=== PATIENT | male | born 1980 | race Caucasian/White ===

== ENCOUNTER → 2017-12-08 16:30 | Outpatient (CLI) | payer OTHER, SELFPAY ==
[2017-12-09 08:20] LABS: BUN 12 mg/dL (7-18); Creatinine, Serum 1.12 mg/dL (0.70-1.30); EST Glomerular Filtration Rate 78 mL/min (>60); Glucose 70 mg/dL (74-106)
[2017-12-09 08:21] LABS: ALB/GLOB Ratio 1.3 RATIO (0.9-2.4); AST(SGOT) 31 U/L (15-37); Alanine Aminotransfer ALT/SGPT 45 U/L (16-61); Albumin, Serum 4.2 g/dL (3.2-5.0); Alkaline Phosphatase 47 U/L (45-117); Anion Gap 7 (5-15); BUN/Creat Ratio 10.7 RATIO (10-20); Calcium,Total 8.9 mg/dL (8.5-10.1); Chloride 103 mmol/L (98-107); Cholesterol 174 mg/dL (200); Est Glom Filt Rate - Afr Amer 95 mL/min (>60); Globulin 3.2 g/dL (2.2-4.2); High Density Lipoprotein 37 mg/dL; Potassium 4.4 mmol/L (3.5-5.1); Protein, Total 7.4 g/dL (6.4-8.2); Sodium Level 139 mmol/L (136-145); Triglycerides 90 mg/dL; Very Low Density Lipoprotein 18 mg/dL (5-40)
[2017-12-09 08:48] LABS: Hemoglobin A1c 4.6 % (4.2-6.3)
== END ==
PROVIDERS: Family Provider Family Medicine; PCP Family Medicine; Visit Provider Registered Nurse
DX: I10 Essential (primary) hypertension (principal); K76.0 Fatty (change of) liver, not elsewhere classified; E78.2 Mixed hyperlipidemia; R73.01 Impaired fasting glucose
CPT/HCPCS: 80053; 80061; 83036

== ENCOUNTER → 2019-07-18 15:14 | Outpatient (CLI) | payer OTHER, SELFPAY ==
[2019-07-18 14:50] VITALS: BMI 48.6
[2019-07-18 17:05] LABS: ALB/GLOB Ratio 1.2 RATIO (0.9-2.4); AST(SGOT) 63 U/L (15-37); Alanine Aminotransfer ALT/SGPT 123 U/L (16-61); Albumin, Serum 3.8 g/dL (3.2-5.0); Alkaline Phosphatase 54 U/L (45-117); Anion Gap 7 (5-15); BUN 17 mg/dL (7-18); BUN/Creat Ratio 15.6 RATIO (10-20); Calcium,Total 8.9 mg/dL (8.5-10.1); Chloride 105 mmol/L (98-107); Cholesterol 195 mg/dL (200); Creatinine, Serum 1.09 mg/dL (0.70-1.30); EST Glomerular Filtration Rate 80 mL/min (>60); Est Glom Filt Rate - Afr Amer 97 mL/min (>60); Globulin 3.3 g/dL (2.2-4.2); Glucose 82 mg/dL (74-106); High Density Lipoprotein 40 mg/dL; Potassium 3.7 mmol/L (3.5-5.1); Protein, Total 7.1 g/dL (6.4-8.2); Sodium Level 139 mmol/L (136-145); Triglycerides 205 mg/dL; Very Low Density Lipoprotein 41 mg/dL (5-40)
[2019-07-18 17:07] LABS: Hemoglobin A1c 5.3 % (4.2-6.3)
== END ==
PROVIDERS: PCP Family Medicine; Referring Provider Family Medicine; Visit Provider Family Medicine
DX: I10 Essential (primary) hypertension (principal); E66.01 Morbid (severe) obesity due to excess calories
CPT/HCPCS: 36415; 80053; 80061; 83036

== ENCOUNTER → 2020-06-18 14:02 | Outpatient (CLI) | payer OTHER, SELFPAY ==
[2020-06-18 13:23] VITALS: BMI 49.5
[2020-06-18 14:04] LABS: Mucous, Urine 0 SEEN /hpf (<or=2+); Red Blood Cells-Urine 0 SEEN /hpf (0-5); Squamous Epithelial Cells - UA 0 SEEN /hpf (0-5); White Blood Cells 0 SEEN /hpf (0-5)
[2020-06-18 15:01] LABS: Absolute Neutrophil Count 2.4 X10^3/uL (2.0-7.7); Basophil# 0.03 X10^3/uL; Basophil% 0.6 % (0-1); Eosinophil# 0.11 X10^3/uL; Eosinophils% 2.3 % (0-5); Hematocrit 47.6 % (40-54); Hemoglobin 16.8 g/dL (13.0-16.5); Lymphocyte % 37.8 % (19-41); Mean Corp Hgb Conc 35.3 g/dL (32-36); Mean Corpuscular Hgb 31.5 pg (27.0-32.0); Mean Corpuscular Volume 89.3 fL (80-94); Mean Platelet Vol. 10.7 fl (6.2-12.0); Monocyte% 8.4 % (0-10); NRBC Flagged by Analyzer 0 % (0-5); Neutrophil # 2.41 X10^3/uL (2.7-7.7); Neutrophil % 50.7 % (47-70); Platelet Count 181 K/mm3 (150-450); RBC Distribution Width CV 12.2 % (11.6-14.6); RBC Distribution Width SD 39.8 fl (35.1-43.9); Red Blood Count 5.33 M/mm3 (4.6-6.2); White Blood Count 4.8 K/mm3 (4.4-11.0)
[2020-06-18 15:22] LABS: Color, Urine Yellow (Yellow); Glucose, Dipstick 1000 mg/dl (Normal); Ketone-Dipstick 15 mg/dl (Negative); Leukocyte Esterase-Dipstick Negative /ul (Negative); Nitrite-Dipstick Negative (Negative); Occult Blood-Urine 25 /ul (Negative); Protein-Dipstick 100 mg/dl (Negative); Specific Gravity, Urine 1.025 (1.002-1.030); Urine Bilirubin Dipstick Negative (Negative); Urine Clarity Clear (Clear); Urine Urobilinogen Normal (Normal)
[2020-06-18 15:24] LABS: ALB/GLOB Ratio 1.2 RATIO (0.9-2.4); AST(SGOT) 200 U/L (15-37); Alanine Aminotransfer ALT/SGPT 473 U/L (16-61); Albumin, Serum 3.8 g/dL (3.2-5.0); Alkaline Phosphatase 78 U/L (45-117); Anion Gap 6 (5-15); BUN 18 mg/dL (7-18); BUN/Creat Ratio 18.1 RATIO (10-20); Calcium,Total 9.3 mg/dL (8.5-10.1); Chloride 102 mmol/L (98-107); Cholesterol 243 mg/dL (200); EST Glomerular Filtration Rate 89 mL/min (>60); Est Glom Filt Rate - Afr Amer 107 mL/min (>60); Globulin 3.3 g/dL (2.2-4.2); Glucose 226 mg/dL (74-106); High Density Lipoprotein 35 mg/dL; PSA,Total - Annual Screen 0.58 ng/mL (0.00-4.00); Potassium 3.9 mmol/L (3.5-5.1); Protein, Total 7.1 g/dL (6.4-8.2); Sodium Level 136 mmol/L (136-145); Thyroid Stim Hormone (TSH) 2.08 uIU/mL (0.358-3.74); Triglycerides 392 mg/dL; Very Low Density Lipoprotein 78 mg/dL (5-40)
[2020-06-18 15:37] LABS: Bacteria 2+ /hpf (None Seen)
[2020-06-18 15:53] LABS: Microalbumin:Creatinine Ratio 1223.1 mg/g CRE (<30 mg/g CRE)
[2020-06-19 10:02] LABS: Hepatitis B Surface Antigen Non-Reactive (Nonreactive); Hepatitis C Antibody Non-Reactive (Nonreactive)
== END ==
PROVIDERS: PCP Family Medicine; Referring Provider Nurse Practitioner Family; Visit Provider Nurse Practitioner Family
DX: E11.65 Type 2 diabetes mellitus with hyperglycemia (principal); R35.0 Frequency of micturition; R79.89 Other specified abnormal findings of blood chemistry
CPT/HCPCS: 36415; 80053; 80061; 81001; 82043; 82570; 84153; 84443; 85025; 86803; 87086; 87340; G0103

== ENCOUNTER 2020-06-20 13:00 | Outpatient (RCR) | payer OTHER, SELFPAY ==
[2020-06-18 13:23] VITALS: BMI 49.5
== END 2020-06-20 23:59 | disposition home or self-care (01) ==
LOC: DC 13:00
PROVIDERS: PCP Family Medicine; Visit Provider Nurse Practitioner Family
DX: E11.65 Type 2 diabetes mellitus with hyperglycemia (principal)
CPT/HCPCS: G0108

== ENCOUNTER → 2020-06-29 09:15 | Outpatient (CLI) | payer OTHER, SELFPAY ==
[2020-06-18 13:23] VITALS: BMI 49.5
--- NOTE | 2020-06-29 09:16 | US_ITS ---
STUDY: ABDOMINAL ULTRASOUND - RIGHT UPPER QUADRANT REASON FOR VISIT: Male, 39 years old elevated lfts TECHNIQUE: Ultrasound evaluation of the right upper quadrant was performed with real-time and static hunt-scale imaging. TECHNICAL QUALITY: Adequate. COMPARISON: None. FINDINGS: Liver: The liver measures 19.0 cm. There is increased echogenicity consistent with fatty infiltration. The bile ducts are within normal limits. There is hepatic color flow. The direction of portal flow is hepatopetal. There is no demonstrated mass lesion. Gallbladder: Normal distended gallbladder. The gallbladder wall measures 2 mm. There is a negative sonographic Echeverria''s sign. There is no pericholecystic fluid. There are no gallstones. Common Bile Duct (C.B.D.): The common bile duct measures 4 mm. Pancreas: There is nonvisualization of the pancreas. t. Right Kidney: Normal size of the right kidney. The right kidney measures 11.7 cm. Normal renal cortex. The right cortex measures 2.1 cm. 1.2 cm cyst in the upper pole the right kidney. There is no right hydronephrosis. US/Liver IMPRESSION: Fatty infiltration of the liver. Electronically Signed: Tuan Dugan MD at 10:19 EST Tel , Service support ,
== END ==
PROVIDERS: PCP Family Medicine; Referring Provider Nurse Practitioner Family; Visit Provider Nurse Practitioner Family
DX: R79.89 Other specified abnormal findings of blood chemistry (principal)
CPT/HCPCS: 76705; 96361; 96365; 96366; 96375; 96376; 99218; G0378; G0379

== ENCOUNTER → 2020-07-17 09:31 | Outpatient (CLI) | payer OTHER, SELFPAY ==
[2020-06-18 13:23] VITALS: BMI 49.5
[2020-07-17 09:33] LABS: Bacteria 0 SEEN /hpf (None Seen); Mucous, Urine 0 SEEN /hpf (<or=2+); Red Blood Cells-Urine 0 SEEN /hpf (0-5); White Blood Cells 0 SEEN /hpf (0-5)
[2020-07-17 12:35] LABS: Color, Urine Yellow (Yellow); Glucose, Dipstick Normal (Normal); Ketone-Dipstick 5 mg/dl (Negative); Leukocyte Esterase-Dipstick Negative /ul (Negative); Nitrite-Dipstick Negative (Negative); Occult Blood-Urine Negative /ul (Negative); Protein-Dipstick 100 mg/dl (Negative); Specific Gravity, Urine 1.025 (1.002-1.030); Urine Bilirubin Dipstick Negative (Negative); Urine Clarity Sl. Cloudy (Clear); Urine Urobilinogen 1 mg/dl (Normal)
[2020-07-17 12:41] LABS: Squamous Epithelial Cells - UA 0-5 SEEN /hpf (0-5)
== END ==
PROVIDERS: PCP Family Medicine; Referring Provider Nurse Practitioner Family; Visit Provider Nurse Practitioner Family
DX: R31.9 Hematuria, unspecified (principal)
CPT/HCPCS: 81001

== ENCOUNTER → 2020-08-07 16:06 | Outpatient (CLI) | payer OTHER, SELFPAY ==
[2020-08-06 16:46] VITALS: BMI 49.4
--- NOTE | 2020-08-07 16:10 | RAD_ITS ---
STUDY: X-RAY - RIGHT KNEE REASON FOR EXAM: Male, 39 years old. right knee pain TECHNIQUE: 4 view(s) of the knee. COMPARISON: None. FINDINGS: Normal visualized distal femur. Normal visualized proximal tibia and fibula. Normal proximal tibiofibular articulation. There is no demonstrated fracture. Normal medial femorotibial compartment. Normal lateral femorotibial compartment. Normal patellofemoral articulation. Minimal joint effusion. Soft tissue swelling along the anterior knee. RAD/Knee 4 or More Views IMPRESSION: Mild soft tissue swelling along with minimal joint effusion. No acute fracture or subluxation. Electronically Signed: Magaly Perkins MD at 22:03 EDT , Service support ,
== END ==
PROVIDERS: PCP Family Medicine; Referring Provider Nurse Practitioner Family; Visit Provider Nurse Practitioner Family
DX: M25.561 Pain in right knee (principal)
CPT/HCPCS: 73564

== ENCOUNTER → 2020-11-21 15:25 | Outpatient (CLI) | payer OTHER, SELFPAY ==
[2020-10-14 14:01] VITALS: BMI 49.1
[2020-11-19 17:02] VITALS: BMI 46.6
--- NOTE | 2020-11-21 15:26 | MRI_ITS ---
STUDY: MRI RIGHT KNEE REASON FOR EXAM: Male, 39 years old. Medial RIGHT knee pain TECHNIQUE: Standardized fat and water weighted pulse sequences were obtained in all 3 orthogonal planes. COMPARISON: None. FINDINGS: A small to moderate-sized joint effusion is present. No marrow edema or osteochondral defect or occult fracture is seen. A small radial tear is present at the free edge of the inner one third aspect of the posterior horn of medial meniscus. Intrasubstance signal abnormality and irregularity is also seen in the root insertion. Normal anterior horn. There is diffuse thinning of the body of the medial meniscus. There is diffuse, greater than 50% thickness articular cartilage loss of the medial femorotibial compartment. Normal medial femoral condyle and tibial plateau. Normal medial collateral ligamentous complex (MCL). Normal distal semimembranosus, gracilis and semitendinosus tendons. Normal lateral meniscus. Normal hyaline cartilage of the lateral femorotibial compartment. Normal lateral femoral condyle and tibial plateau. Normal proximal tibiofibular articulation. Normal lateral collateral (fibular) ligament. Normal popliteus tendon. Normal biceps femoris tendon. Normal anterior cruciate ligament (ACL). Normal posterior cruciate ligament (PCL). Normal congruent patellofemoral articulation. Normal hyaline cartilage of the patellofemoral compartment. Normal lateral patellar retinaculum. Mild partial tearing of the inferior aspect of the medial patellar retinacula noted. Normal quadriceps tendon. Normal patellar tendon. Normal Hoffa''s fat pad. The soft tissues are unremarkable. The otherwise visualized osseous structures are unremarkable. MRI/Lower Ext Joint Only (Routine) IMPRESSION: 1. Small radial tear and intrasubstance signal abnormality in the inner one third aspect of the posterior horn of medial meniscus and root insertion respectively. 2. Diffuse thinning of the body of the medial meniscus 3. Small to moderate size joint effusion 4. Partial tearing of the medial patellar retinaculum Electronically Signed: Quintin Michel MD at 21:17 EDT , Service support ,
== END ==
PROVIDERS: PCP Family Medicine; Referring Provider Orthopaedic Surgery; Visit Provider Orthopaedic Surgery
DX: M17.11 Unilateral primary osteoarthritis, right knee (principal); E66.01 Morbid (severe) obesity due to excess calories
CPT/HCPCS: 73721

== ENCOUNTER → 2020-12-16 16:04 | Outpatient (CLI) | payer OTHER, SELFPAY ==
[2020-12-16 15:40] VITALS: BMI 46.6
[2020-12-16 17:20] LABS: ALB/GLOB Ratio 1.3 RATIO (0.9-2.4); AST(SGOT) 57 U/L (15-37); Alanine Aminotransfer ALT/SGPT 108 U/L (16-61); Alkaline Phosphatase 50 U/L (45-117); Anion Gap 5 (5-15); BUN 14 mg/dL (7-18); Calcium,Total 8.5 mg/dL (8.5-10.1); Chloride 105 mmol/L (98-107); Cholesterol 192 mg/dL (200); Creatinine, Serum 1.08 mg/dL (0.70-1.30); EST Glomerular Filtration Rate 81 mL/min (>60); Est Glom Filt Rate - Afr Amer 97 mL/min (>60); Glucose 117 mg/dL (74-106); High Density Lipoprotein 35 mg/dL; Potassium 4.1 mmol/L (3.5-5.1); Sodium Level 141 mmol/L (136-145); Triglycerides 615 mg/dL
[2020-12-16 17:29] LABS: Microalbumin:Creatinine Ratio 477.7 mg/g CRE (<30 mg/g CRE)
== END ==
PROVIDERS: PCP Family Medicine; Referring Provider Nurse Practitioner Family; Visit Provider Nurse Practitioner Family
DX: E11.9 Type 2 diabetes mellitus without complications (principal); E66.01 Morbid (severe) obesity due to excess calories; K76.0 Fatty (change of) liver, not elsewhere classified
CPT/HCPCS: 36415; 80053; 80061; 82043; 82570

== ENCOUNTER → 2021-01-24 11:29 | Outpatient (CLI) | payer OTHER, SELFPAY ==
[2021-01-24 11:25] LABS: Probe Check PASS; Specimen Processing Control PASS
== END ==
PROVIDERS: PCP Family Medicine; Visit Provider Physician Assistant
DX: Z11.52 Encounter for screening for COVID-19 (principal)
CPT/HCPCS: 87635; U0005; U0003

== ENCOUNTER 2021-01-27 18:39 | Outpatient (CLI) | payer OTHER, SELFPAY ==
[2021-01-27 18:44] VITALS: BP 174/83; PULSE 53; RESP 16; TEMP 36.6; O2SAT 97; BMI 46.8
[2021-01-27] MEDS: 0.9% Saline Lock 10 ML Syringe IV (18:50)
[2021-01-27 19:16] VITALS: BP 151/77; PULSE 53; RESP 16; TEMP 36.5; O2SAT 98
[2021-01-27 20:16] VITALS: BP 175/83; PULSE 52; RESP 16; TEMP 36.6; O2SAT 98
== END 2021-01-27 20:16 | disposition home or self-care (01) ==
LOC: ICUOUT 18:40 → MS3 18:41
PROVIDERS: PCP Family Medicine; Referring Provider Nurse Practitioner Adult Health; Visit Provider Nurse Practitioner Adult Health
DX: Z23 Encounter for immunization (principal); U07.1 COVID-19
CPT/HCPCS: J7050; M0243; A4216; Q0244

== ENCOUNTER 2021-05-30 08:27 | Outpatient (CLI) | payer OTHER, SELFPAY ==
[2021-05-30 12:22] LABS: Absolute Lymphocyte Count 1.71 X10^3/uL (0.83-4.51); Absolute Neutrophil Count 3.6 X10^3/uL (2.0-7.7); Basophil# 0.03 X10^3/uL; Basophil% 0.5 % (0-1); Eosinophil# 0.13 X10^3/uL; Eosinophils% 2.1 % (0-5); Hematocrit 45.2 % (40-54); Hemoglobin 16.1 g/dL (13.0-16.5); Lymphocyte # 1.71 X10^3/ul (0.83-4.51); Lymphocyte % 27.8 % (19-41); Mean Corp Hgb Conc 35.6 g/dL (32-36); Mean Corpuscular Hgb 32.1 pg (27.0-32.0); Mean Platelet Vol. 10.5 fl (6.2-12.0); Monocyte# 0.68 X10^3/uL; Monocyte% 11.1 % (0-10); NRBC Flagged by Analyzer 0 % (0-5); Neutrophil # 3.58 X10^3/uL (2.7-7.7); Neutrophil % 58.2 % (47-70); Platelet Count 208 K/mm3 (150-450); RBC Distribution Width CV 12.7 % (11.6-14.6); RBC Distribution Width SD 41.4 fl (35.1-43.9); Red Blood Count 5.02 M/mm3 (4.6-6.2); White Blood Count 6.2 K/mm3 (4.4-11.0)
[2021-05-30 13:04] LABS: Vitamin D,25 Hydroxy 26.3 ng/mL
[2021-05-30 13:05] LABS: ALB/GLOB Ratio 1.1 RATIO (0.9-2.4); AST(SGOT) 75 U/L (15-37); Alanine Aminotransfer ALT/SGPT 147 U/L (16-61); Albumin, Serum 3.8 g/dL (3.2-5.0); Alkaline Phosphatase 51 U/L (45-117); Anion Gap 4 (5-15); BUN 14 mg/dL (7-18); Calcium,Total 8.8 mg/dL (8.5-10.1); Chloride 107 mmol/L (98-107); Cholesterol 108 mg/dL (200); EST Glomerular Filtration Rate 88 mL/min (>60); Est Glom Filt Rate - Afr Amer 106 mL/min (>60); Globulin 3.4 g/dL (2.2-4.2); Glucose 83 mg/dL (74-106); High Density Lipoprotein 37 mg/dL; Potassium 3.9 mmol/L (3.5-5.1); Protein, Total 7.2 g/dL (6.4-8.2); Sodium Level 138 mmol/L (136-145); Thyroid Stim Hormone (TSH) 2.62 uIU/mL (0.358-3.74); Triglycerides 124 mg/dL; Very Low Density Lipoprotein 25 mg/dL (5-40)
== END 2021-05-30 23:59 | disposition short-term general hospital (02) ==
PROVIDERS: PCP Family Medicine; Referring Provider Nurse Practitioner Family; Visit Provider Nurse Practitioner Family
DX: E11.9 Type 2 diabetes mellitus without complications (principal); E66.01 Morbid (severe) obesity due to excess calories; K76.0 Fatty (change of) liver, not elsewhere classified; E56.9 Vitamin deficiency, unspecified; U07.1 COVID-19
CPT/HCPCS: 36415; 80053; 80061; 82043; 82306; 82570; 84443; 85025; 86769

== ENCOUNTER 2021-06-10 09:43 | Day surgery (SDC) | payer OTHER, SELFPAY ==
[2021-06-10] VITALS (11 sets, daily range): BP systolic 120–165; BP diastolic 59–116; PULSE 43–61; RESP 12–18; TEMP 36.1–36.6; O2SAT 91–100; BMI 48.9
[2021-06-10 10:16] LABS: Bedside Glucose 95 mg/dL (70-110)
[2021-06-10] MEDS: Lactated Ringers 1,000 ML 15 ML IV ×2 (10:30→13:22)
[2021-06-10] MEDS: Epinephrine (1 mg/ml) 1 MG/ML VIAL (11:20)
--- NOTE | 2021-06-10 11:39 | PCM.HP.BLA ---
History and Physical Date of Admission: 06/10/21 Date of Service: 05/28/21 MR#:[id number]:[id number]: MICHA FLORES WRep #:[id number]:[id number] Provider:Dr. Noah Kohler, DOAge/Sex: 40/M [facility] [place] Intake Intake Visit Reasons: RIGHT KNEE Is patient in pain?: Yes Allergies erythromycin base Allergy (Verified 05/28/21 15:11) Unknown Medications blood sugar diagnostic #50 ea 06/18/20 [Rx Confirmed 05/28/21] blood-glucose meter #1 ea 06/18/20 [Rx Confirmed 05/28/21] lancets 28 gauge #50 ea 06/18/20 [Rx Confirmed 05/28/21] diltiazem HCl 240 mg capsule,24 hr,extended release 240 mg PO DAILY #90 cap 11/19/20 [Rx Confirmed 05/28/21] lisinopril 40 mg tablet 40 mg PO DAILY #90 tab 11/19/20 [Rx Confirmed 05/28/21] metoprolol succinate 50 mg capsule sprinkle, ext. release 24 hr 50 mg PO DAILY #90 ea 11/19/20 [Rx Confirmed 05/28/21] fenofibrate micronized 43 mg capsule 43 mg PO QHS #90 cap 12/17/20 [Rx Confirmed 05/28/21] rosuvastatin 20 mg tablet 20 mg PO DAILY #90 tab 12/17/20 [Rx Confirmed 05/28/21] dextromethorphan-guaifenesin ER 60 mg-1,200 mg tab,extend release,12hr 1 tab PO BID PRN #20 tab 01/27/21 [Rx Confirmed 05/28/21] dulaglutide 1.5 mg/0.5 mL subcutaneous pen injector 1.5 mg SC TU #2 ml 05/06/21 [Rx Confirmed 05/28/21] PFSH Medical History (Updated 05/27/21 @ 17:14 by Carlos Colunga RISK SPECIALIST, RISK SPECIALIST-C) Colon polyps Diabetes Encounter for screening for COVID-19 Fatty liver Frequent headaches GERD (gastroesophageal reflux disease) HTN (hypertension) Hyperlipidemia Seasonal allergies Surgical History H/O eye surgery H/O hernia repair History of tonsillectomy Family History Other Anxiety Arthritis Diabetes Heart disease Hypertension Thyroid disorder Social History Smoking Status: Never smoker alcohol intake: current alcohol intake frequency: holidays/special occasions only substance use type: does not use what type of physical activity do you participate in: none HPI RIGHT KNEE Details: Parts of this documentation were recorded by a scribe, this documentation accurately reflects the service provided and the decisions made by me, Dr. Noah Kohler, DO 05/28/21 0815. MICHA FLORES is a 40 year old M here today for continued right knee pain. Patient notes that the series of 3 Euflexxa injections in December 2020 which helped with his pain for about 2 months. He had a steroid injection in 10/2020 which was helpful for about a week. Patient complains of pain over his medial knee and across his anterior knee. He has some popping which is painful. Patient has knee instability. He complains of pain with ambulating stairs. 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 Patient had an MRI in October. Patient denies any pain medications. He states that his weight is staying about the same. Ortho Exam General General: Yes no acute distress Neurologic: Yes alert Psychologic: Yes reasonable and appropriate Right Knee Skin/Wound: Yes CDI, No erythema and No ecchymosis Knee ROM: Yes ROM-Extension -20 to 0 and Yes ROM-Flexion 0-140 (90) Examination: Yes Med jt line tenderness and Yes Addison's Test Supplemental Info 11/21/2020 MRI right knee: Read as small radial tear free edge inner one third aspect posterior horn medial meniscus however I am having a hard time visualizing this. Also read as greater than 50% articular cartilage loss of the medial compartment joint effusion read as partial tearing noted of the inferior aspect of the medial patellar retinaculum there is mild patellofemoral arthrosis with lateral patellar tracking Coding Level of Care Code Off vis,est,level 3 Diagnoses Arthritis of right knee M17.11 Acute medial meniscus tear of left knee S83.242A Encounter type: initial encounter Assessment and Plan Assessment and Plan (1) Arthritis of right knee: Status: Acute (2) Acute medial meniscus tear of left knee: Status: Acute Qualifiers: Encounter type: initial encounter Qualified Code(s): S83.242A - Other tear of medial meniscus, current injury, left knee, initial encounter Plan - Dr. Noah Kohler DO: Spoke with the patient about the anatomy of the knee and etiology of his pain. Spoke with him about the small meniscus tear within his knee and he may have an arthroscopy although it might not help him due to the small nature of the tear and the presence of knee arthritis. Explained the benefits of weight loss and he may be referred to the [facility]. He may do physical therapy and anti-inflammatories. Due to the patient failing conservative treatment, he wished to proceed with an arthroscopy as he does have somepainful mechanical symptoms. we discussed the importance of weight loss and offered referral to the [facility]. Spoke with the patient about the procedure, recovery. Explained a medial meniscectomy vs repair. Patient will be non-weightbearing for 6 weeks post op if he has a meniscus repair. Reviewed the pre-operative plans with the patient. Risks and benefits of the procedure were fully explained, including but not limited to infection, neurovascular injury, continued pain, arthritis, stiffness, need for further surgery, re-injury, DVT, PE, general risks of anesthesia, and loss of limb or life. The patient understands all the risks and does wish to proceed with written consent. Follow up for 2 week post op or sooner if pain, swelling, numbness or associated symptoms, or concerns develop. All questions answered. Patient in agreement of plan. 05/28/21 1535<Electronically signed by Noah Kohler DO>Date Noah Kohler DO Cosigner Signature:Date I have re-examined the patient. There are no clinical changes since date of exam
[2021-06-10] MEDS: Lidocaine 1%/Epi 1:200 (30ml) 30 ML AMPUL (11:50)
[2021-06-10] MEDS: Bupivacaine 0.5% PF 10 ML VIAL (12:15)
[2021-06-10] MEDS: MethylPREDNISolone Acetate 40 MG/ML Vial IM (12:15)
--- NOTE | 2021-06-10 12:24 | OP.PCM_ITS ---
Report of Operation Date of Procedure: 06/10/21 Description of Surgical Findings:: Preop diagnosis: Right knee medial meniscus tear DJD Postoperative diagnosis: Synovitis, plica, complex tear body and horn medial meniscus grade 3 cartilage wear medial femoral condyle Procedure: Right knee arthroscopic partial medial meniscectomy excision of plica synovectomy and chondroplasty medial femoral condyle Anesthesia: General Estimated blood loss: [5] mL Tourniquet time: 25 minutes 300 mmHg Complications: none Indication for procedure: 40-year-old male has had ongoing mechanical knee pain who is failed conservative treatment did have MRI evidence of DJD and medial meniscus tear the patient did wish to proceed with an elective arthroscopic surgery to attempt to alleviate the symptoms. Risk benefits and alternatives of the procedure were reviewed including risk of bleeding infection nerve artery tissue damage need for further surgery continued pain and expected postoperative course. Procedure: The patient was met in the preoperative holding area. The operative extremity was identified by both patient and physician and family and marked. Patient was brought back to the operating room on a wheeled cart and transferred to the operating table in the supine position. Anesthesia was started. A we ll-padded tourniquet was placed on the operative extremity. A lower extremity leg tilley was secured to the operative extremity. The contralateral extremity was well-padded and the end of the bed was flexed to 90 degrees. The patient was prepped and draped in the usual sterile fashion. A timeout was called to ensure the proper patient, procedure, and extremity were being contemplated. 0.5% Marcaine with epinephrine was injected into the planned incisional areas under the skin only. An Esmarch was used to exsanguinate the extremity and the tourniquet was inflated. An 11 blade scalpel was used to make a stab incision in the anterior lateral portal. The arthroscope was inserted into the intercondylar notch and inflow and outflow tubes were attached. Arthroscopic visualization began. There was significant hypertrophic tissue within the notch and gutters reminiscent of prior arthroscopic surgeries however the patient denied any. Shaver had to be used to perform a partial synovectomy to allow for visualization there was not significant synovitis just thickened what appeared to be scar tissue, there was medial and lateral plicas which had to be removed to allow visualization the medial compartment was entered. An 18-gauge spinal needle was used to establish the placement for anterior medial portal. An 11 blade scalpel was used to make a stab incision. Blunt probe was inserted followed by a meniscal probe. There was noted to be a radial tear of the body of the medial meniscus as well as some undersurface horizontal tearing of the posterior horn with use of arthroscopic biting instruments shaver and ArthroCare partial medial meniscectomy was performed in addition there is diffuse grade 3 cup chondral wear of the medial femoral condyle and there was some loose carti dheeraj flaps which were debrided with a shaver the ACL was [found to be intact]. The lateral compartment was entered lateral compartment was free of meniscal pathology with there was some cartilage softening and fissuring of the tibial plateau The arthroscope was switched to the medial portal to complete the procedure. The medial and lateral gutters were inspected and [were free of loose bodies]. The patellofemoral joint was inspected grade 3 cartilage wear, in addition there is noted to be some osteophytes at the superior edge of the femoral articulation with the patella as well as in the notch and on the medial femoral condyle medial border. [There was good patellar tracking.] The knee was thoroughly irrigated and drained. An intra-articular injection with 5 cc 0.5% Marcaine plain [and 40 mg of Depo-Medrol] was injected intra-articularly. The arthroscope was removed the portals were closed with 3-0 nylon arthroscopic stitches. Followed by Xeroform 4 x 4's ABDs web roll and an Ketan wrap. The tourniquet was let down and the drapes were removed. All counts were correct. The patient was brought back to the PACU in stable condition. Surgeon: Noah Kohler
--- NOTE | 2021-06-10 12:29 | PCM.DC ---
Discharge Instructions Activity Keep extremity elevated above heart level: Operative Extremity Dressing / Incision Call your doctor if you observe: Shortness of breath and Chest pain Additional Dressing/Incision Instructions:: Ice and elevate next 72 hours .keep dressing on clean and dry for 48 hours then may remove begin showering daily but do not submerge in tub or pool. After shower may apply Band-Aids . Encourage knee range of motion weightbearing as tolerated, use crutches until confident in knee then may discontinue. No strenuous activity. When not ambulating keep iced and elevated next 72 hours. Do not mix pain medication with recreational drugs or alcohol only take as prescribed can be addictive and abusive, call with any questions or concerns. Follow Up Care Please Follow Up With: Noah Kohler DO When: 2 weeks Test Results: Test results from this visit will be discussed in further detail at your follow-up appointment, if applicable. Discharge Plan Admission Attending Provider: Noah Kohler Primary Care Provider: Roger Gibson Discharge Orders/Prescriptions Prescriptions: New oxycodone 5 mg tablet 5 - 10 mg PO Q4H PRN (Reason: pain) 5 Days Qty: 25 RF: 0 No Action (DME) lancets [FreeStyle Lancets] 28 gauge misc See Rx Instructions .ROUTE .MEDSUPPLY Qty: 50 RF: 11 (DME) blood-glucose meter [FreeStyle System Kit] Kit See Rx Instructions .ROUTE .MEDSUPPLY Qty: 1 RF: 0 (DME) FreeStyle Test Strip See Rx Instructions .ROUTE .MEDSUPPLY Qty: 50 RF: 11 diltiazem HCl 240 mg capsule,extended release 24 hr 240 mg PO DAILY Qty: 90 RF: 3 lisinopril 40 mg tablet 40 mg PO DAILY Qty: 90 RF: 3 metoprolol succinate 50 mg capsule,sprinkle,ER 24hr 50 mg PO DAILY Qty: 90 RF: 3 rosuvastatin 20 mg tablet 20 mg PO DAILY Qty: 90 RF: 1 fenofibrate micronized 43 mg capsule 43 mg PO QHS Qty: 90 RF: 1 Trulicity 1.5 mg/0.5 mL pen injector 1.5 mg SC TU Qty: 2 RF: 3 Referrals / Follow Up: Roger Gibson DO [Primary Care Provider] - Disposition Disposition (needs filled in before D/C Order can be placed): Home, Self Care
[2021-06-10] MEDS: oxyCODONE 5 MG Tablet PO (14:40)
== END 2021-06-10 23:59 | disposition home or self-care (01) ==
LOC: SDC 09:44 → AC 09:44
PROVIDERS: PCP Family Medicine; Referring Provider Orthopaedic Surgery; Visit Provider Orthopaedic Surgery
PROC: 0SBC4ZZ Excision of Right Knee Joint, Percutaneous Endoscopic Approach (ICD-10-PCS; CPT 29870; principal; 2021-06-10 11:00)
DX: S83.239A Complex tear of medial meniscus, current injury, unspecified knee, initial encounter (principal); E11.9 Type 2 diabetes mellitus without complications; Z79.4 Long term (current) use of insulin; M17.11 Unilateral primary osteoarthritis, right knee; I10 Essential (primary) hypertension; M65.9 Synovitis and tenosynovitis, unspecified; E78.5 Hyperlipidemia, unspecified; M25.369 Other instability, unspecified knee; X58.XXXA Exposure to other specified factors, initial encounter; Y93.9 Activity, unspecified; Y99.9 Unspecified external cause status; Y92.9 Unspecified place or not applicable; Z79.899 Other long term (current) drug therapy; K21.9 Gastro-esophageal reflux disease without esophagitis; Z86.16 Personal history of COVID-19
CPT/HCPCS: 29881; 01400; 82962; 87426; J7120; J2405

== ENCOUNTER → 2021-09-01 | Outpatient (CLI) | payer OTHER, SELFPAY ==
[2021-09-01 17:21] LABS: Protein, Urine (Random) 153.6 mg/dL (<11.9); Protein:Creat Ratio 698 mg/g CRE (0-200)
[2021-09-01 17:23] LABS: Anion Gap 5 (5-15); BUN 20 mg/dL (7-18); BUN/Creat Ratio 13.1 RATIO (10-20); Calcium,Total 9.6 mg/dL (8.5-10.1); Chloride 105 mmol/L (98-107); Creatinine, Serum 1.53 mg/dL (0.70-1.30); EST Glomerular Filtration Rate 54 mL/min (>60); Est Glom Filt Rate - Afr Amer 65 mL/min (>60); Glucose 90 mg/dL (74-106); Potassium 4.3 mmol/L (3.5-5.1); Sodium Level 139 mmol/L (136-145)
[2021-09-03 16:10] LABS: PROEL- A/G Ratio 1.3 (0.7-1.7); PROEL- Alpha-1 Globulin 0.2 g/dL (0.0-0.4); PROEL- Alpha-2 Globulin 0.9 g/dL (0.4-1.0); PROEL- Beta Globulin 1.1 g/dL (0.7-1.3); PROEL- Gamma Globulin 0.8 g/dL (0.4-1.8)
== END | disposition home or self-care (01) ==
PROVIDERS: PCP Family Medicine; Referring Provider Internal Medicine Nephrology; Visit Provider Internal Medicine Nephrology
DX: N18.2 Chronic kidney disease, stage 2 (mild) (principal); R80.9 Proteinuria, unspecified
CPT/HCPCS: 36415; 80048; 82570; 84156; 84165

== ENCOUNTER 2021-12-12 05:22 | Day surgery (SDC) | payer OTHER, SELFPAY ==
[2021-12-12] VITALS (7 sets, daily range): BP systolic 126–172; BP diastolic 67–84; PULSE 48–75; RESP 16; TEMP 36.6–37.5; O2SAT 93–100; BMI 47.7
--- NOTE | 2021-12-12 | COLBX_PTH ---
PATIENT: MICHA FLORES LOC: EN U#:[id number] AGE/SX: 40/M ROOM: RE12/12/[address]: Dr. Cristiano Dobbins DO : 1980 BED: DIS: 12/12/2021 SPEC #: [id number] RECD: 12/12/21 13:46 STATUS: WAYNE RERolanda #: [id number] PHIL: 12/12/21 00:[address]: Cristiano Dobbins DEPT: SURGICAL PATHOLOGY RECD BY: Yosef Medina ENTERED: 12/12/21 13:47 SP TYPE: COLON BX [place] DR: Dr. Roger Gibson DO Tissues: A - Cecum, NOS B - SPLENIC FLEXURE C - Sigmoid colon biopsy D - Rectum, NOS Procedures: Surgery Specimen Level IV HEADER OPERATION: Colonoscopy (MAC) PRE-OP DIAGNOSIS: Non-alcoholic fatty liver disease, colon polyps TISSUE SUBMITTED: A ? Cecal polyp biopsy, B ? Splenic flexure biopsy, C ? Sigmoid polyp, D ? Rectum polyp biopsy MICROSCOPIC DIAGNOSIS A ? Cecal polyp, biopsy: A fragment of colonic mucosa with focal hyperplastic changes. B ? Splenic flexure, biopsy: Fragments of tubular adenoma. C ? Sigmoid polyp, biopsy: Tubular adenoma. D ? Rectum polyp biopsy: Fragments of tubular adenoma. MARÍA 12/15/21 MICROSCOPIC DESCRIPTION Slides are reviewed. GROSS DESCRIPTION A - Received in fixative is one container labeled with the patient's name and designated cecal polyp biopsy. The specimen consists of one irregular fragment of light henry soft tissue that measures 0.4 x 0.3 x 0.1 cm. The specimen is totally submitted in one cassette. B - Received in fixative is one container labeled with the patient's name and designated splenic flexure biopsy. The specimen consists of multiple irregular fragments of light henry soft tissue that in aggregate measure 0.8 x 0.3 x 0.1 cm. The specimen is totally submitted in one cassette. C - Received in fixative is one container labeled with the patient's name and designated sigmoid polyp. The specimen consists of a piece of henry-pink polyp measuring 0.3 x 0.3 x 0.2 cm. Multiple fragments of fecal material are also noted. The specimen is totally submitted in one cassette. D - Received in fixative is one container labeled with the patient's name and designated rectum polyp. The specimen consists of two irregular fragments of light henry soft tissue that in aggregate measure 0.6 x 0.3 x 0.1 cm. The specimen is totally submitted in one cassette: / MARÍA:anayeli 12/12/21 TC:1 CPT: 99634 x4
--- NOTE | 2021-12-12 06:24 | HP.PCM_ITS ---
History and Physical Date of Admission: 12/12/21 40 M who presents to the office today for hx of colon polyp. States he is overdue for Q5yr colonoscopy for hx of colon polyp. No FH colon cancer. He says he has no GI complaints. Has daily BM. Does have to strain with BM, can be painful. No bleeding. No diarrhea. No abdominal pain. He denies heartburn, denies using medication for heartburn. No nausea or vomiting. No difficulty swallowing. He had an US in 2020 that revealed fatty liver. He has diabetes, obesity. Comorbidities include DM2, obesity, LANE, HTN, NAFLD, headaches, hyperlipidemia, seasonal allergies ROS Const Constitutional: No fatigue ENT ENT: No difficulty swallowing Cardio Cardiology: Positive for slow heart rate Gastro GI: Positive for bloating and excessive flatus; No abdominal pain, belching, change in bowel habits, change in stool character, coffee ground emesis, constipation, cramping, diarrhea, heartburn, difficulty swallowing, feeling full early, incontinent of stools, Vomiting blood/hemate mesis, Blood in stool, loose stools, Black,tarry stools, nausea/dyspepsia, pain with swallowing, vomiting or other Musc Musculoskeletal: Positive for back pain; No joint pain Skin Skin: No yellowing of the eye or itchy eyes Psych Psychiatric: No anxiety and No depression Endo Endocrine: No fatigue Aller/Imm Allergy/Immunologic: No itchy eyes Pako/Lymp Hematologic/Lymphatic: No easy bleeding or easy bruising Exam Const General: cooperative and comfortable Nutritional Appearance: obese Quality Reporting Tobacco Screening ([facility]) Smoking Status: Never smoker Assessment and Plan Assessment and Plan (1) Non-alcoholic fatty liver disease: ?Status:?Chronic (2) Colon polyps: ?Status:?Acute ? ? ? Orders: Orders Abdomen Complete Today K76.0 - Fatty (change of) liver, not elsewhere classified ? Elastography Parenchyma/Organ Today K76.0 - Fatty (change of) liver, not elsewhere classified ? HIV - [facility] Today K76.0 - Fatty (change of) liver, not elsewhere classified ? Comprehensive Metabolic Profil Today K76.0 - Fatty (change of) liver, not elsewhere classified ? CRP Today K76.0 - Fatty (change of) liver, not elsewhere classified ? Ferritin Today K76.0 - Fatty (change of) liver, not elsewhere classified ? LDH Today K76.0 - Fatty (change of) liver, not elsewhere classified ? Hemoglobin A1c Today K76.0 - Fatty (change of) liver, not elsewhere classified ? Prothrombin Time w/INR Today K76.0 - Fatty (change of) liver, not elsewhere classified ? CBC W/Diff, Automated Today K76.0 - Fatty (change of) liver, not elsewhere classified ? Erythrocyte Sed Rate Today K76.0 - Fatty (change of) liver, not elsewhere classified ? Anti-Mitochondrial AB Today K76.0 - Fatty (change of) liver, not elsewhere classified ? FREDERICK Comprehensive Panel Today K76.0 - Fatty (change of) liver, not elsewhere classified ? Hepatitis Panel Acute Today K76.0 - Fatty (change of) liver, not elsewhere classified ? Angiotensin Convert Enzyme Today K76.0 - Fatty (change of) liver, not elsewhere classified ? AFP, Tumor Marker Today K76.0 - Fatty (change of) liver, not elsewhere classified ? ANCA Today K76.0 - Fatty (change of) liver, not elsewhere classified ? Anti-Smooth Muscle ABS Today K76.0 - Fatty (change of) liver, not elsewhere classified ? Ceruloplasmin Today K76.0 - Fatty (change of) liver, not elsewhere classified ? Copper, Serum or Plasma Today K76.0 - Fatty (change of) liver, not elsewhere classified ? Haptoglobin Today K76.0 - Fatty (change of) liver, not elsewhere classified ? Ammonia Today K76.0 - Fatty (change of) liver, not elsewhere classified ? Plan He will be scheduled for colonoscopy. He denied any heartburn or use of any meds for heartburn so I didn't schedule him for EGD. f/u 2 wks after to discuss results. Discussed NAFLD diagnosis, biochemical w/u, eval with liver elastography I have re-examined the patient. There are no clinical changes since date of exam.
[2021-12-12 07:10] LABS: Bedside Glucose 112 mg/dL (74-106)
--- NOTE | 2021-12-12 07:13 | OP.COLON_ITS ---
Patient Name: Bishop Hernández Procedure Date: 12/12/2021 6:26 AM Date of : 1980 Age: 41 Procedure: Colonoscopy Indications: Screening for colorectal malignant neoplasm Providers: Cristiano Dobbins DO Medicines: Monitored Anesthesia Care Patient Profile: This is a 41 year old male. Refer to note in patient chart for documentation of history and physical. Last Colonoscopy: 5 years ago. Complications: No immediate complications. Procedure: Pre-Anesthesia Assessment: - Prior to the procedure, a History and Physical was performed, and patient medications and allergies were reviewed. The patient is competent. The risks and benefits of the procedure and the sedation options and risks were discussed with the patient. All questions were answered and informed consent was obtained. Patient identification and proposed procedure were verified by the physician in the pre-procedure area. Mental Status Examination: alert and oriented. Airway Examination: normal oropharyngeal airway and neck mobility. Respiratory Examination: clear to auscultation. CV Examination: normal. Prophylactic Antibiotics: The patient does not require prophylactic antibiotics. Prior Anticoagulants: The patient has taken no previous anticoagulant or antiplatelet agents. ASA Grade Assessment: II - A patient with mild systemic disease. After reviewing the risks and benefits, the patient was deemed in satisfactory condition to undergo the procedure. The anesthesia plan was to use moderate sedation / analgesia (conscious sedation). Immediately prior to administration of medications, the patient was re-assessed for adequacy to receive sedatives. The heart rate, respiratory rate, oxygen saturations, blood pressure, adequacy of pulmonary ventilation, and response to care were monitored throughout the procedure. The physical status of the patient was re-assessed after the procedure. After I obtained informed consent, the scope was passed under direct vision. Throughout the procedure, the patient's blood pressure, pulse, and oxygen saturations were monitored continuously. The Colonoscope was introduced through the anus and advanced to the terminal ileum. The colonoscopy was performed without difficulty. The patient tolerated the procedure well. The quality of the bowel preparation was good. Scope In: 6:40:44 AM Scope Withdrawal Time 0 hours 21 minutes 45 seconds Scope Out: 7:06:00 AM Total Procedure Duration Time 0 hours 25 minutes 16 seconds Findings: The perianal and digital rectal examinations were normal. A few small-mouthed diverticula were found in the recto-sigmoid colon and sigmoid colon. A 5 mm polyp was found in the rectum sigmoid colon splenic flexure cecum. The polyp was sessile. The polyp was removed with a hot snare. Resection and retrieval were complete. Verification of patient identification for the specimen was done. Estimated blood loss was minimal. An anal fissure was found on perianal exam. Impression: - Diverticulosis in the recto-sigmoid colon and in the sigmoid colon. - One 5 mm polyp in the rectum in the sigmoid colon at the splenic flexure in the cecum, removed with a hot snare. Resected and retrieved. Recommendation: - Repeat colonoscopy in 4 years for surveillance. - Continue present medications. Procedure Code(s): --- Professional --- 59678, Colonoscopy, flexible; with removal of tumor(s), polyp(s), or other lesion(s) by snare technique CPT copyright 2017 [employer] [place] [employer]. All rights reserved. The codes documented in this report are preliminary and upon collector of port review may be revised to meet current compliance requirements. Cristiano Dobbins DO 12/12/2021 7:12:43 AM This report has been signed electronically. Number of Addenda: 1 Note Initiated On: 12/12/2021 6:26 AM Addendum Number: 1 Addendum Date: 02/05/2022 6:21:59 AM MAC was used as sedation for this procedure. Cristiano Dobbins DO 02/05/2022 6:22:05 AM This report has been signed electronically.
--- NOTE | 2021-12-12 07:13 | OP.CCLET_ITS ---
02/05/2022 Roger Gibson Re : Colonoscopy procedure for Bishop Hernández Dear Dr. Gibson This procedure was performed on Sunday, December 12, 2021. My impressions and recommendations are as follows: Impressions : - Diverticulosis in the recto-sigmoid colon and in the sigmoid colon. - One 5 mm polyp in the rectum in the sigmoid colon at the splenic flexure in the cecum, removed with a hot snare. Resected and retrieved. Recommendations : - Repeat colonoscopy in 4 years for surveillance. - Continue present medications. My findings are described in the full procedure note, which is enclosed. If I can be of further assistance, please feel free to contact me at . Sincerely, Cristiano Dobbins, 12/12/2021 7:12:43 AM This report has been signed electronically.
== END 2021-12-12 07:55 | disposition home or self-care (01) ==
LOC: EN 05:24 → AC 05:25
PROVIDERS: PCP Family Medicine; Referring Provider Family Medicine; Visit Provider Internal Medicine Gastroenterology
PROC: 0DJD8ZZ Inspection of Lower Intestinal Tract, Via Natural or Artificial Opening Endoscopic (ICD-10-PCS; CPT 45378; principal; 2021-12-12 06:25)
DX: Z12.11 Encounter for screening for malignant neoplasm of colon (principal); Z68.42 Body mass index [BMI] 45.0-49.9, adult; D12.5 Benign neoplasm of sigmoid colon; D12.3 Benign neoplasm of transverse colon; D12.8 Benign neoplasm of rectum; K57.30 Diverticulosis of large intestine without perforation or abscess without bleeding; K76.0 Fatty (change of) liver, not elsewhere classified; K60.2 Anal fissure, unspecified; E66.9 Obesity, unspecified; I10 Essential (primary) hypertension; E78.5 Hyperlipidemia, unspecified; Z79.899 Other long term (current) drug therapy; Z86.010 Personal history of colon polyps; Z86.16 Personal history of COVID-19
CPT/HCPCS: 45385; 82962; 88305; J7120; J2405

== ENCOUNTER 2022-01-17 12:36 | Emergency (ER) | payer OTHER, SELFPAY ==
[2022-01-17 12:37] VITALS: BP 187/99; PULSE 82; TEMP 37; O2SAT 94; BMI 50.5
--- NOTE | 2022-01-17 13:31 | EDS_ITS ---
HPI History of Present Illness Chief Complaint: Laceration Narrative Narrative: 41-year-old male presenting with laceration to the right lower leg. He states he was chain sawing inadvertently caught himself. He was able to control the bleeding. He is ambulatory. He does not think he hit the bone with the chainsaw. Patient last tetanus unknown. Patient does report that he gets cellulitis easily. [facility] Medical History Colon polyps CPAP (continuous positive airway pressure) dependence Diabetes Encounter for screening for COVID-19 Fatty liver Frequent headaches GERD (gastroesophageal reflux disease) Heartburn High cholesterol History of edema History of stress test HTN (hypertension) Hyperlipidemia Non-smoker Seasonal allergies Wears glasses Home Medications blood sugar diagnostic (FreeStyle Test strips) #50 ea 06/18/20 [Rx Last Taken Unknown] blood-glucose meter (FreeStyle System Kit) #1 ea 06/18/20 [Rx Last Taken Unknown] lancets 28 gauge (FreeStyle Lancets) #50 ea 06/18/20 [Rx Last Taken Unknown] lisinopril 40 mg tablet 40 mg PO DAILY #90 tabs 11/19/20 [Rx Last Taken 06/10/21 08:00] metoprolol succinate 50 mg capsule sprinkle, ext. release 24 hr 50 mg PO DAILY #90 ea 11/19/20 [Rx Last Taken 06/10/21 08:00] fenofibrate micronized 43 mg capsule 43 mg PO QHS #90 caps 12/17/20 [Rx Last Taken Unknown] rosuvastatin 20 mg tablet 20 mg PO DAILY #90 tabs 12/17/20 [Rx Last Taken Unknown] hydrochlorothiazide 25 mg tablet 25 mg PO QAM #90 tabs 08/29/21 [Rx Last Taken Unknown] Allergy/AdvReac Type Severity Reaction Status Date / Time erythromycin base Allergy Hives Verified 01/17/22 12:44 Family History Other Anxiety Arthritis Diabetes Heart disease Hypertension Thyroid disorder Surgical History H/O eye surgery H/O hernia repair History of tonsillectomy Hx of right knee surgery Social History Smoking Status: Never smoker alcohol intake: current alcohol intake frequency: holidays/special occasions only substance use type: does not use what type of physical activity do you participate in: none ROS ROS ED Constitutional Constitutional ED: Denies chills or fever(s) Eyes Eyes: Denies blurry vision or change in vision ENT ENT ED: Denies rhinorrhea or sore throat Cardiovascular Cardiovascular: Denies chest pain or palpitations Respiratory/Chest Respiratory/Chest: Denies cough or dyspnea Gastrointestinal Gastrointestinal: Denies abdominal pain or constipation Genitourinary Genitourinary ED: Denies dysuria or hematuria Musculoskeletal Musculoskeletal: Denies arthralgias or back pain Integumentary Reports other Details: Laceration right lower extremity Neurologic Neurologic: Denies headache(s) Psychiatric Psychiatric: Denies anxiety or depression EXAM Physical Exam Const Vital Signs: 01/17/22 12:37 Temperature 98.6 F Temperature Source Temporal Pulse Rate 82 Blood Pressure 187/99 H Blood Pressure Mean 128 Pulse Ox 94 Oxygen Delivery Method Room Air Positive well nourished General Appearance ED: NAD HEENT atraumatic Eyes PERRL and EOMs intact bilaterally Resp normal respiratory effort Cardio regular rhythm Rate: regular rate Neuro oriented x3, CN's II-XII intact bilaterally and moves all extremities Sensorium / Orientation: alert Psych mental status grossly normal and thought process normal Skin Skin Narrative: 7 cm laceration to the right medial calf with wound margins about 2 cm. This does extend into the subcutaneous tissue but does not involve tendon or bone. PROC Procedures Lacerations right leg laceration: Length: 2.76 in Shape: Ellipse Prep: Sterile Conditions and Chlorhexadine Laceration repair: Debrideded, Irrigated, Lidocaine with epi, Subcutaneous sutures and Wound explored Irrigated (ml): 500 Number of Sutures/[place]: 8 Comment: #4 3-0 Ethilon mattress sutures placed #4 3-0 Ethilon simple interrupted sutures MDM MDM MDM Narrative Medical decision making narrative: Patient presents with chainsaw laceration to the right lower leg. There is no bone, ligament, muscle involvement. The wound was cleaned by nursing staff and I again cleaned this with Shur-Clens and irrigated it with 500 cc of sterile saline. The wound was anesthetized with 10 cc of lidocaine with epinephrine with good anesthesia achieved. After the wound was irrigated and anesthetized the wound margins which were macerated from the chainsaw injury were trimmed back removing the skin that would not heal. #4 3?0 Ethilon sutures were placed using aHorizontal mattress technique which did pull the wound margins together. This was technically difficult because the wound margins did not line up due to the chainsaw injury but the best approximation was achieved. 4 3-0 Ethilon simple interrupted sutures were used to strengthen the suturing because it is in a high tension area. Patient tolerated procedure well. Patient states that he gets cellulitis very easily and he was given Keflex because it is both below the knee, a dirty wound, and because he gets cellulitis very easily. Patient is counseled on wound care. His tetanus was updated today. Patient will be discharged home. Impression: 1. Tetanus update 2. 7 cm right leg laceration Lab Data Attestation: I reviewed the patient's lab results. Discharge Plan Triage Chief Complaint: Laceration Other Complaint: Trauma ED Provider: Fito Del Rio Dx/Rx/DC Orders Prescriptions: No Action (DME) lancets [FreeStyle Lancets] 28 gauge misc See Rx Instructions .ROUTE .MEDSUPPLY Qty: 50 11RF Rx Instructions: Check blood glucose daily for type 2 DM (DME) blood-glucose meter [FreeStyle System Kit] Kit See Rx Instructions .ROUTE .MEDSUPPLY Qty: 1 0RF Rx Instructions: check blood glucose daily for type 2 DM (DME) FreeStyle Test Strip See Rx Instructions .ROUTE .MEDSUPPLY Qty: 50 11RF Rx Instructions: check blood glucose daily lisinopril 40 mg tablet 40 mg PO DAILY Qty: 90 3RF metoprolol succinate 50 mg capsule,sprinkle,ER 24hr 50 mg PO DAILY Qty: 90 3RF hydrochlorothiazide 25 mg tablet 25 mg PO QAM Qty: 90 2RF rosuvastatin 20 mg tablet 20 mg PO DAILY Qty: 90 1RF fenofibrate micronized 43 mg capsule 43 mg PO QHS Qty: 90 1RF Primary Care Provider: Roger Gibson Referrals: Roger Gibson, DO [Primary Care Provider] -
[2022-01-17] MEDS: Cephalexin 250 MG Capsule 500 MG PO (15:13)
[2022-01-17] MEDS: Diphth,Pertuss(Acell),Tet Vac 0.5 ML Vial IM (15:14)
[2022-01-17 15:28] VITALS: BP 190/107; PULSE 50; RESP 16; O2SAT 95
== END 2022-01-17 15:32 | disposition home or self-care (01) ==
PROVIDERS: Emergency Provider Student in an Organized Health Care Education/Training Program; PCP Family Medicine; Visit Provider Student in an Organized Health Care Education/Training Program
DX: S81.811A Laceration without foreign body, right lower leg, initial encounter (principal); I10 Essential (primary) hypertension; Z79.899 Other long term (current) drug therapy; X58.XXXA Exposure to other specified factors, initial encounter
CPT/HCPCS: 12002; 90715; 96372; 99283

== ENCOUNTER → 2022-02-24 | Outpatient (CLI) | payer OTHER, SELFPAY ==
[2022-02-24 10:05] LABS: Erythrocyte Sedimentation Rate 8 mm/hr (0-20)
[2022-02-24 10:16] LABS: Absolute Lymphocyte Count 2.13 X10^3/uL (0.83-4.51); Absolute Neutrophil Count 2.6 X10^3/uL (2.0-7.7); Basophil# 0.04 X10^3/uL; Basophil% 0.7 % (0-1); Eosinophil# 0.11 X10^3/uL; Hematocrit 42.7 % (40-54); Hemoglobin 15.5 g/dL (13.0-16.5); Lymphocyte # 2.13 X10^3/ul (0.83-4.51); Lymphocyte % 39.7 % (19-41); Mean Corp Hgb Conc 36.3 g/dL (32-36); Monocyte% 9.3 % (0-10); NRBC Flagged by Analyzer 0 % (0-5); Neutrophil # 2.58 X10^3/uL (2.7-7.7); Neutrophil % 48.1 % (47-70); Platelet Count 160 K/mm3 (150-450); RBC Distribution Width CV 12.4 % (11.6-14.6); RBC Distribution Width SD 40.8 fl (35.1-43.9); Red Blood Count 4.69 M/mm3 (4.6-6.2); White Blood Count 5.4 K/mm3 (4.4-11.0)
[2022-02-24 10:36] LABS: Anion Gap 5 (5-15); BUN 17 mg/dL (7-18); BUN/Creat Ratio 14.5 RATIO (10-20); Calcium,Total 8.6 mg/dL (8.5-10.1); Chloride 105 mmol/L (98-107); Cholesterol 160 mg/dL (200); Creatinine, Serum 1.17 mg/dL (0.70-1.30); EST Glomerular Filtration Rate 73 mL/min (>60); Est Glom Filt Rate - Afr Amer 88 mL/min (>60); Glucose 122 mg/dL (74-106); High Density Lipoprotein 35 mg/dL; Sodium Level 138 mmol/L (136-145); Triglycerides 162 mg/dL; Very Low Density Lipoprotein 32 mg/dL (5-40)
[2022-02-24 10:39] LABS: ALB/GLOB Ratio 1.2 RATIO (0.9-2.4); AST(SGOT) 54 U/L (15-37); Alanine Aminotransfer ALT/SGPT 106 U/L (16-61); Albumin, Serum 3.7 g/dL (3.2-5.0); Alkaline Phosphatase 43 U/L (45-117); Anion Gap 4 (5-15); BUN 17 mg/dL (7-18); BUN/Creat Ratio 15.3 RATIO (10-20); CRP 2.92 mg/L (0.0-3.0); Calcium,Total 8.8 mg/dL (8.5-10.1); Chloride 107 mmol/L (98-107); Creatinine, Serum 1.11 mg/dL (0.70-1.30); EST Glomerular Filtration Rate 78 mL/min (>60); Est Glom Filt Rate - Afr Amer 94 mL/min (>60); Ferritin 119 ng/mL (26-388); Globulin 3.2 g/dL (2.2-4.2); Glucose 124 mg/dL (74-106); LDH 204 U/L (87-241); Potassium 4.2 mmol/L (3.5-5.1); Protein, Total 6.9 g/dL (6.4-8.2); Sodium Level 140 mmol/L (136-145)
[2022-02-24 10:41] LABS: Hemoglobin A1c 5.7 % (3.8-5.6)
[2022-02-24 10:45] LABS: Protein:Creat Ratio 206 mg/g CRE (0-200)
[2022-02-24 11:01] LABS: HIV - WCH Non-Reactive (Nonreactive)
[2022-02-25 15:08] LABS: Anti-Centromere B Ab <0.2 AI (0.0-0.9); Anti-Chromatin <0.2 AI (0.0-0.9); Anti-Jo <0.2 AI (0.0-0.9); Anti-Scleroderma-70 AB <0.2 AI (0.0-0.9); RNP Ab 0.2 AI (0.0-0.9); SJOGREN'S Anti-SS-A test < 0.2 AI (0.0-0.9); SJOGREN'S Anti-SS-B test < 0.2 AI (0.0-0.9); Smith Ab <0.2 AI (0.0-0.9)
[2022-02-26 15:08] LABS: Angiotensin Convert Enzyme 17 U/L (14-82); Ceruloplasmin 21.3 mg/dL (16.0-31.0); Cytoplasmic Ab (C-ANCA) <1:20 titer (Neg:<1:20); HEPATITIS B SURFACE AG Negative (Negative); Hep C Antibodies <0.1 s/co ratio (0.0-0.9); Hepatitis A IgM Antibody Negative (Negative); Hepatitis B Core AB IgM Negative (Negative)
[2022-02-26 17:23] LABS: Anti-Mitochondrial AB <20.0 Units (0.0-20.0); Anti-dsDNA Ab <1 IU/mL (0-9)
[2022-02-27 15:42] LABS: Anti-Smooth Muscle ABS 4 Units (0-19); Copper, Serum or Plasma 87 ug/dL (69-132); Haptoglobin 110 mg/dL (23-355); Perinuclear Ab (P-ANCA) <1:20 titer (Neg:<1:20)
== END | disposition home or self-care (01) ==
PROVIDERS: PCP Internal Medicine Nephrology; Referring Provider Nurse Practitioner Adult Health; Visit Provider Nurse Practitioner Family
DX: R80.9 Proteinuria, unspecified (principal); E11.9 Type 2 diabetes mellitus without complications; N18.2 Chronic kidney disease, stage 2 (mild); K76.0 Fatty (change of) liver, not elsewhere classified; I10 Essential (primary) hypertension; E78.5 Hyperlipidemia, unspecified
CPT/HCPCS: 80048; 80053; 80061; 80074; 82105; 82140; 82164; 82390; 82525; 82570; 82728; 83010; 83036; 83516; 83615; 84156; 85025; 85610; 85652; 86140; 86225; 86235; 86256; 86703

== ENCOUNTER → 2023-04-10 | Outpatient (CLI) | payer OTHER, SELFPAY ==
[2023-04-17 10:08] LABS: Testosterone, % Free 3.18 % (1.50-4.20); Testosterone, Free 9.89 ng/dL (5.00-21.00); Testosterone, Total 311 ng/dL (264-916)
== END | disposition home or self-care (01) ==
LOC: LAB 10:44
PROVIDERS: PCP Internal Medicine Nephrology; Referring Provider Family Medicine; Visit Provider Family Medicine
DX: R53.83 Other fatigue (principal)
CPT/HCPCS: 36415; 84402; 84403

== ENCOUNTER → 2023-04-16 | Outpatient (CLI) | payer OTHER, SELFPAY ==
--- NOTE | 2023-04-16 08:46 | BI_ITS ---
MAMMOGRAPHY - BILATERAL DIAGNOSTIC REASON FOR EXAM: Male, 42 years old. Bilateral breast lungs. PERTINENT HISTORY: Non-contributory. TECHNIQUE: Digital bilateral breast aissatou (3D mammographic acquisition) in the CC and MLO projections. 2-D mediolateral oblique (MLO) and craniocaudad (CC) views of both breasts were obtained. CAD: Full Field Digital Mammography with Computer Added Detection was performed. COMPARISON: None. Baseline examination. FINDINGS: Breast Composition: The breasts are almost entirely fatty. There are no dominant masses or suspicious calcifications. No other significant abnormalities are identified. BI/DIAG MAMM W/CAD, BILAT IMPRESSION: Negative diagnostic mammogram. With the patient''s history of bilateral breast lumps, targeted correlation with ultrasound is recommended. ASSESSMENT CATEGORY: BIRADS Category 0: Incomplete. Need additional imaging evaluation. A letter regarding these results will be sent to the patient by the facility within 30 days. Approximately 10% of breast cancers are not detected by mammography. A normal mammogram should not delay biopsy of a clinically suspicious abnormality. Electronically Signed: Michael Abbott MD at 9:46 EST ,
--- NOTE | 2023-04-16 10:49 | US_ITS ---
STUDY: ULTRASOUND BREAST - RIGHT REASON FOR EXAM: Male, 42 years old. Palpable lumps in the right breast. TECHNIQUE: Axial and longitudinal images of the RIGHT breast were performed with a high resolution ultrasound transducer. # OF IMAGES: 41 COMPARISON: Comparison is made with prior mammogram done earlier today. FINDINGS: RIGHT Breast: The upper half of the right breast was examined with ultrasound. At the 1:00 position of the breast, there are 2 echogenic nodules suggestive lipoma. The larger measures 0.4 cm x 0.4 cm x 0.3 cm. IMPRESSION: Findings suggestive of lipomas corresponding to the palpable lump. ASSESSMENT CATEGORY: BIRADS Category 2: Benign. A letter regarding these results will be sent to the patient by the facility within 30 days. Electronically Signed: Michael Abbott MD at 15:11 EST , STUDY: ULTRASOUND BREAST - LEFT REASON FOR EXAM: Male, 42 years old. Palpable lumps. TECHNIQUE: Axial and longitudinal images of the LEFT breast were performed with a high resolution ultrasound transducer. # OF IMAGES: 41 COMPARISON: Comparison is made with prior mammogram done earlier today. FINDINGS: LEFT Breast: The medial aspect of the left breast was examined with ultrasound. 4 echogenic nodules are seen suggestive of lipomas. The largest is at the 10:00 position breast at 7 cm from the nipple. This measures 1.5 cm x 1.7 cm x 0.6 cm. US/Breast Limited Unilateral IMPRESSION: Findings suggestive of lipomas corresponding to the palpable lumps. ASSESSMENT CATEGORY: BIRADS Category 2: Benign. A letter regarding these results will be sent to the patient by the facility within 30 days. Electronically Signed: Michael Abbott MD at 15:12 EST ,
== END | disposition home or self-care (01) ==
PROVIDERS: PCP Internal Medicine Nephrology; Referring Provider Family Medicine; Visit Provider Family Medicine
DX: N63.10 Unspecified lump in the right breast, unspecified quadrant (principal); N63.20 Unspecified lump in the left breast, unspecified quadrant
CPT/HCPCS: 76642; 77062; 77066; G0279

== ENCOUNTER → 2023-07-15 | Outpatient (CLI) | payer OTHER, SELFPAY ==
--- NOTE | 2023-07-15 09:25 | RAD_ITS ---
STUDY: X-RAY - LEFT ANKLE REASON FOR EXAM: Male, 42 years old. Left ankle pain TECHNIQUE: 3 view(s) of the ankle. COMPARISON: None. FINDINGS: Normal visualized distal tibia and fibula. Normal medial and lateral malleoli. Normal tibiotalar articulation and ankle mortise. Calcaneal spurs. The visualized subtalar, talonavicular, calcaneocuboid and tarsal articulations are normal. The soft tissue structures are unremarkable. RAD/Ankle min 3 Views IMPRESSION: Calcaneal spurs. Electronically Signed: Michael Abbott MD at 10:28 EDT ,
== END | disposition home or self-care (01) ==
LOC: MTRAD 09:25
PROVIDERS: PCP Internal Medicine Nephrology; Referring Provider Physician Assistant Surgical; Visit Provider Physician Assistant Surgical
DX: S96.912A Strain of unspecified muscle and tendon at ankle and foot level, left foot, initial encounter (principal)
CPT/HCPCS: 73610

== ENCOUNTER → 2023-08-12 | Outpatient (CLI) | payer OTHER, SELFPAY | END | disposition home or self-care (01) | LOC: SL 13:44 | PROVIDERS: PCP Family Medicine; Referring Provider Nurse Practitioner; Visit Provider Nurse Practitioner | DX: I10 Essential (primary) hypertension (principal); G47.30 Sleep apnea, unspecified | CPT/HCPCS: 95806 ==

== ENCOUNTER → 2024-08-01 | Outpatient (CLI) | payer OTHER, SELFPAY ==
[2024-08-01 17:45] LABS: ALB/GLOB Ratio 1.7 RATIO (0.9-2.4); AST(SGOT) 46 U/L (<=37); Alanine Aminotransfer ALT/SGPT 67 U/L (<=46); Albumin, Serum 4.4 g/dL (3.5-5.0); Alkaline Phosphatase 49 U/L (40-129); Anion Gap 12 (5-15); BUN 17 mg/dL (4-19); BUN/Creat Ratio 14.9 RATIO (10-20); Calcium,Total 9.4 mg/dL (7.6-11.0); Carbon Dioxide 27.1 mmol/L (21.0-32.0); Chloride 101 mmol/L (98-108); Cholesterol 185 mg/dL (<=200); Creatinine, Serum 1.16 mg/dL (0.70-1.20); EST Glomerular Filtration Rate 80 (>60); Globulin 2.6 g/dL (2.2-4.2); Glucose 90 mg/dL (70-99); High Density Lipoprotein 39 mg/dL; Low Density Lipoprotein Calc. 107 mg/dL; Sodium Level 139 mmol/L (133-145); Total Bilirubin 0.79 mg/dL (0.00-1.30); Triglycerides 192 mg/dL; Very Low Density Lipoprotein 38 mg/dL (5-40); cholesterol:hdl ratio screen 4.71
[2024-08-01 17:53] LABS: Hemoglobin A1c 5.7 % (<=5.6)
== END | disposition home or self-care (01) ==
PROVIDERS: PCP Family Medicine; Referring Provider Family Medicine; Visit Provider Family Medicine
DX: K76.0 Fatty (change of) liver, not elsewhere classified (principal); E11.9 Type 2 diabetes mellitus without complications; E78.5 Hyperlipidemia, unspecified
CPT/HCPCS: 36415; 80053; 80061; 83036

== ENCOUNTER → 2024-10-06 | Outpatient (CLI) | payer OTHER, SELFPAY ==
--- NOTE | 2024-10-06 14:54 | RAD_ITS ---
PROCEDURE: TOE(S) MIN 2 VIEWS 10/06/2024 REASON FOR EXAM: PAIN TECHNIQUE: Four view right 1st toe COMPARISON: None. RAD/Toe(s) Min 2 Views IMPRESSION: At least mild degenerative changes are seen both of the 1st metatarsophalangeal and 1st interphalangeal joints. No definite joint narrowing is seen. No radiopaque foreign body is seen. No acute fracture or dislocation is appreciated. If clinical concern persists, short-term follow-up imaging may be obtained to r ule out a currently occult fracture. Reading Location: [id number]
--- OUTSIDE RECORDS SUMMARY | 2024-10-06 19:07 | XMS RPT_ITS | CCD ---
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 Roger Gibson Primary Care Provider [phone] Dr. Roger Gibson Referring Provider Cristine PISTON MAKER, PISTON MAKER-C Carlos Attending Provider [phone] Dr. Noah Kohler Attending Provider [phone] Dr. Noah Kohler Referring Provider [phone] Dr. Noah Kohler Other Provider [phone] Mariah JEFFERSON, RONNY George Attending Provider [phone] Dr. Roger Gibson Primary Care Provider [phone] Dr. Roger Gibson Referring Provider Cristine PISTON MAKER, PISTON MAKER-C Carlos Attending Provider [phone] Miguel GODDARD, PISTON MAKER-C Annalee Olivera Attending Provider [phone] Dr. Cristiano Dobbins Attending Provider Dr. Cristiano Dobbins Other Provider Dr. Roger Gibson Primary Care Provider [phone] Dr. Roger Gibson Referring Provider Cristine PISTON MAKER, PISTON MAKER-C Carlos Attending Provider [phone] Dr. Roger Gibson Primary Care Provider [phone] Dr. Roger Gibson Referring Provider Dr. Domingo Bustamante Primary Care Provider Dr. Domingo Bustamante Referring Provider Dr. Roger Gibson Attending Provider Dr. Domingo Bustamante Primary Care Provider Dr. Domingo Bustamante Referring Provider Dr. Roger Gibson Attending Provider KANDI Hines Attending Provider RONNY Yao Attending Provider Dr. Domingo Bustamante Primary Care Provider [phone] Dr. Domingo Bustamante Referring Provider Dr. Roger Gibson DO Primary Care Provider Dr. Roger Gibson DO Attending Provider [phone] Dr. Roger Gibson DO Referring Provider [phone] Roger Gibson Attending Unavailable Roger Gibson Primary Care Unavailable Roger Gibson Referring Unavailable Roger Gibson Primary Care Unavailable Roger Gibson Referring Unavailable Roger Gibson Attending Unavailable Christie Hines Referring Unavailable Christie Hines Attending Unavailable Roger Gibson Primary Care Unavailable Allergies Allergy Classification Reported Allergen(s) Allergy Type Date of Onset Reaction(s) Facility (2 sources) azithromycin; Translations: [AZITHROMYCIN] Drug Allergy 0 [facility] (2 sources) erythromycin; Translations: [ERYTHROMYCIN] Drug Allergy 0 [facility] (8 sources) Erythromycin Drug Allergy 2 Unknown, [facility] (1 source) Erythromycin Drug Allergy 5 [facility] Medications Current Medications Medication Drug Class(es) Dates Sig (Normalized) Sig (Original) amLODIPine 10 mg oral tablet (20 sources) Dihydropyridine Calcium Channel Roxana Start: 10-22-2022 End: 08-01-2024 take 1 tablet by mouth once daily Amlodipine 10 mg tablet Active 10 mg PO DAILY August 01, 2024 4:16pm Start: 06-10-2022 End: 10-22-2022 take 1 tablet by mouth once daily Amlodipine 5 mg tablet Discontinued 5 mg PO DAILY June 10, 2022 5:16pm October 22, 2022 1:25pm Start: 05-19-2022 End: 06-10-2022 take 5 mg by mouth once daily Amlodipine 10 mg tablet Discontinued 5 mg PO DAILY May 19, 2022 5:29pm June 10, 2022 5:18pm Start: 05-19-2022 End: 06-10-2022 take 5 mg by mouth once daily Amlodipine Discontinued 5 MG PO DAILY May 19, 2022 5:29pm June 10, 2022 5:18pm Auto-training CPAP (1 source) Start: 08-31-2023 Auto-training CPAP Active 0 .Route .MEDSUPPLY August 31, 2023 12:00am As directed Blood-Glucose Meter (Freesty le System Kit) kit (8 sources) Start: 06-18-2020 Blood-Glucose Meter (Freestyle System Kit) kit Active 0 .ROUTE .MEDSUPPLY June 18, 2020 3:06pm check blood glucose daily for type 2 DM Start: 06-18-2020 Blood-Glucose Meter (Freestyle System Kit) kit Active 0 .ROUTE .MEDSUPPLY June 18, 2020 12:00am check blood glucose daily for type 2 DM Start: 06-18-2020 Blood-Glucose Meter (Freestyle System Kit) kit Active 0 .ROUTE .MEDSUPPLY June 18, 2020 1:00am check blood glucose daily for type 2 DM Full face CPAP mask (4 sources) Start: 03-10-2023 Full face CPAP mask Active 0 .Route .MEDSUPPLY March 10, 2023 1:00am As directed Start: 03-10-2023 Full face CPAP mask Active 0 .Route .MEDSUPPLY March 10, 2023 12:00am As directed hydroCHLOROthiazide 25 mg oral tablet (20 sources) Thiazide Diuretic Start: 08-29-2021 End: 08-01-2024 take 1 tablet by mouth once daily in the morning Hydrochlorothiazide 25 mg tablet Active 0 .ROUTE .COMPLEX 90 August 01, 2024 4:16pm TAKE 1 TABLET BY MOUTH EVERY MORNING lisinopril 40 mg oral tablet (20 sources) Angiotensin Converting Enzyme Inhibitor Start: 07-18-2019 End: 08-01-2024 take 1 tablet by mouth once daily Lisinopril 40 mg tablet Active 40 mg PO DAILY August 01, 2024 4:16pm Start: 09-11-2017 End: 07-18-2019 take 1 tablet by mouth once daily Lisinopril 2.5 mg tablet Discontinued 2.5 mg PO daily September 11, 2017 12:00am July 18, 2019 9:54am 24 hr metoprolol succinate 50 mg extended release oral capsule (20 sources) beta-Adrenergic Roxana Start: 07-18-2019 End: 08-01-2024 take 1 capsule by mouth once daily Metoprolol Succinate 50 mg capsule,sprinkle,ER 24hr Active 50 mg PO DAILY August 01, 2024 4:16pm Start: 09-11-2017 End: 07-18-2019 take 1 tablet by mouth twice daily Metoprolol Tartrate 25 mg tablet Discontinued 25 mg PO TWICE A DAY September 11, 2017 12:00am July 18, 2019 9:54am rosuvastatin calcium 20 mg oral tablet (20 sources) HMG-CoA Reductase Inhibitor Start: 12-17-2020 take 20 mg by mouth once daily Rosuvastatin Active 20 MG PO DAILY December 17, 2020 8:46am Start: 06-18-2020 End: 12-17-2020 take 1 tablet by mouth once daily Rosuvastatin 10 mg tablet Discontinued 10 mg PO DAILY November 19, 2020 5:15pm December 17, 2020 8:46am Completed/Discontinued Medications Medication Drug Class(es) Dates Sig (Normalized) Sig (Original) amoxicillin 875 mg / clavulanate 125 mg oral tablet (8 sources) Penicillin-class Antibacterial Start: 05-16-2018 End: 05-26-2018 Amoxicillin-Pot Clavulanate (Augmentin) 875-125 mg tablet Discontinued 1 {tbl} PO Q12H 19 02May 16, 2018 1:00am May 25, 2018 1:00am May 26, 2018 1:09am cephalexin 500 mg oral capsule (20 sources) Cephalosporin Antibacterial Start: 01-17-2022 End: 02-04-2022 take 1 capsule by mouth three times daily Cephalexin 500 mg capsule Discontinued 500 mg PO THREE TIMES A DAY January 17, 2022 12:00am February 04, 2022 4:31pm Start: 07-04-2019 End: 07-14-2019 take 1 capsule by mouth every twelve hours Cephalexin 500 mg capsule Discontinued 500 mg PO Q12H 20 July 04, 2019 1:00am July 13, 2019 12:00am July 14, 2019 12:09am Start: 07-11-2018 End: 07-04-2019 take 1 capsule by mouth three times daily Cephalexin 500 mg capsule Discontinued 500 mg PO THREE TIMES A DAY July 11, 2018 12:00am July 04, 2019 6:26pm 24 hr dilTIAZem hydrochloride 240 mg extended release oral capsule (20 sources) Calcium Channel Roxana Start: 07-18-2019 End: 11-19-2020 take 1 capsule by mouth once daily Diltiazem Hcl 240 mg capsule,extended release 24 hr Discontinued 240 mg PO DAILY August 06, 2020 5:17pm November 19, 2020 5:15pm Start: 09-11-2017 End: 07-18-2019 take 1 capsule by mouth twice daily Diltiazem Hcl 60 mg capsule,extended release 12 hr Discontinued 60 mg PO TWICE A DAY September 11, 2017 12:00am July 18, 2019 9:54am doxycycline monohydrate 100 mg oral tablet (5 sources) Tetracycline-class Drug Start: 01-20-2022 End: 02-04-2022 take 1 tablet by mouth twice daily Doxycycline Monohydrate 100 mg tablet Discontinued 100 mg PO TWICE A DAY January 20, 2022 12:00am February 04, 2022 4:31pm 0.5 ml dulaglutide 3 mg/ml auto-injector (20 sources) GLP-1 Receptor Agonist Start: 01-27-2021 End: 05-06-2021 Dulaglutide (Trulicity) 1.5 mg/0.5 mL pen injector Discontinued 1.5 mg SC January 27, 2021 6:44pm May 06, 2021 3:24pm Start: 06-18-2020 End: 01-27-2021 Dulaglutide (Trulicity) 1.5 mg/0.5 mL pen injector Discontinued 1.5 mg SC EVERY WEEK 2 October 11, 2020 3:30pm November 19, 2020 5:15pm fenofibrate 43 mg oral capsule (8 sources) Peroxisome Proliferator Receptor alpha Agonist Start: 12-17-2020 End: 08-01-2024 take 1 capsule by mouth at bedtime Fenofibrate Micronized 43 mg capsule Discontinued 43 mg PO AT BEDTIME December 17, 2020 12:00am August 01, 2024 4:08pm 2 ml sodium hyaluronate 10 mg/ml prefilled syringe (3 sources) Start: 12-30-2020 End: 12-30-2020 Euflexxa (sodium hyaluronate (viscosup)) Discontinued 10 MG INTRAARTIC ONCE December 30, 2020 3:39pm December 30, 2020 4:30pm Start: 12-23-2020 End: 12-23-2020 Euflexxa (sodium hyaluronate (viscosup)) Discontinued 10 MG INTRAARTIC ONCE December 23, 2020 3:39pm December 23, 2020 3:58pm Start: 12-16-2020 End: 12-16-2020 Euflexxa (sodium hyaluronate (viscosup)) Discontinued 10 MG INTRAARTIC ONCE December 16, 2020 3:32pm December 16, 2020 3:59pm ibuprofen 200 mg oral tablet (8 sources) Nonsteroidal Anti-inflammatory Drug Start: 07-18-2019 End: 08-06-2020 take 1 tablet by mouth every six hours as needed Ibuprofen (Advil) 200 mg tablet Discontinued 200 mg PO EVERY 6 HOURS as needed July 18, 2019 12:00am August 06, 2020 5:19pm meloxicam 15 mg oral tablet (8 sources) Nonsteroidal Anti-inflammatory Drug Start: 08-06-2020 End: 10-14-2020 take 7.5-15 mg by mouth once daily as needed for pain Meloxicam (Mobic) 15 mg tablet Discontinued 7.5 - 15 mg PO DAILY as needed for pain August 06, 2020 12:00am October 14, 2020 2:04pm methylPREDNISolone acetate 40 mg/ml injectable suspension (9 sources) Corticosteroid Start: 10-14-2020 End: 10-14-2020 Depo-Medrol (methylprednisol one acetate) 40 mg/mL suspension for injection Discontinued 40 MG INTRAARTIC ONCE October 14, 2020 1:54pm October 14, 2020 2:17pm Start: 08-20-2020 End: 10-14-2020 take 1 tablet by mouth once Methylprednisolone (Medrol (John)) 4 mg tablets,dose pack Discontinued 0 PO per package directions August 20, 2020 12:00am October 14, 2020 2:04pm PO PER PKG DIR multivitamin capsule (7 sources) Start: 09-11-2017 End: 06-18-2020 take 1 capsule by mouth once daily in the morning multivitamin capsule Discontinued 1 CAP PO EVERY MORNING September 11, 2017 8:47am June 18, 2020 2:28pm Start: 09-11-2017 End: 06-18-2020 take 1 capsule by mouth once daily in the morning multivitamin capsule Discontinued 1 CAP PO EVERY MORNING September 10, 2017 11:00pm June 18, 2020 1:28pm Start: 09-11-2017 End: 06-18-2020 take 1 capsule by mouth once daily in the morning multivitamin capsule Discontinued 1 CAP PO EVERY MORNING September 11, 2017 12:00am June 18, 2020 2:28pm Multivitamin capsule (1 source) Start: 09-11-2017 End: 06-18-2020 Multivitamin capsule Discontinued 1 NMA PO EVERY MORNING September 11, 2017 12:00am June 18, 2020 2:28pm oxyCODONE hydrochloride 5 mg oral tablet (8 sources) Opioid Agonist Start: 06-10-2021 End: 07-28-2021 take 5-10 mg by mouth every four hours as needed for pain Oxycodone 5 mg tablet Discontinued 5 - 10 mg PO Q4H as needed for pain 25 5 June 10, 2021 July 28, 2021 3:38pm predniSONE 10 mg oral tablet (11 sources) Start: 07-15-2023 End: 07-27-2023 Prednisone 10 mg tablet Discontinued 10 mg PO daily 01 05July 15, 2023 12:00am July 26, 2023 12:00am July 27, 2023 12:05am Take 4 tabs once daily days 1-3 3 tabs once daily days 4-6 2 tabs once daily days 7-9 and 1 tab once daily days 10-12. Start: 09-11-2017 End: 07-11-2018 Prednisone 10 mg tablet Disc ontinued 0 PO daily September 11, 2017 12:00am July 11, 2018 12:32pm 4 tabs for 3 days, then 3 tabs for 3 days, then 2 tabs for 3 days, then 1 tab for 3 days PO QDAY; administer with food or milk Semaglutide (4 sources) Start: 07-14-2022 End: 01-27-2023 Semaglutide (Ozempic) 1 mg/d ose (4 mg/3 mL) pen injector Discontinued 1 mg SC EVERY WEEK 3 July 14, 2022 12:00am January 27, 2023 4:28pm Start: 07-14-2022 End: 01-27-2023 Semaglutide (Ozempic) 1 mg/d ose (4 mg/3 mL) pen injector Discontinued 1 MG SC EVERY WEEK 3 July 14, 2022 12:00am January 27, 2023 4:28pm Start: 07-14-2022 End: 01-27-2023 Semaglutide (Ozempic) 1 mg/d ose (4 mg/3 mL) pen injector Discontinued 1 MG SC EVERY WEEK 3 July 13, 2022 11:00pm January 27, 2023 3:28pm Tirzepatide (Mounjaro) 5 mg/ 0.5 mL pen injector (8 sources) Start: 07-07-2022 End: 01-27-2023 Tirzepatide (Mounjaro) 5 mg/ 0.5 mL pen injector Discontinued 5 mg SC EVERY WEEK 2 July 07, 2022 3:24pm January 27, 2023 4:28pm Start: 07-07-2022 End: 01-27-2023 Tirzepatide (Mounjaro) 5 mg/ 0.5 mL pen injector Discontinued 5 MG SC EVERY WEEK 2 July 07, 2022 3:24pm January 27, 2023 4:28pm Start: 07-07-2022 End: 01-27-2023 Tirzepatide (Mounjaro) 5 mg/ 0.5 mL pen injector Discontinued 5 MG SC EVERY WEEK 2 July 07, 2022 2:24pm January 27, 2023 3:28pm Start: 06-10-2022 End: 07-07-2022 Tirzepatide (Mounjaro) 5 mg/ 0.5 mL pen injector Discontinued 5 mg SC EVERY WEEK 2 June 10, 2022 1:00am July 07, 2022 3:24pm Start: 06-10-2022 End: 07-07-2022 Tirzepatide (Mounjaro) 5 mg/ 0.5 mL pen injector Discontinued 5 MG SC EVERY WEEK 2 June 10, 2022 1:00am July 07, 2022 3:24pm Start: 06-10-2022 End: 07-07-2022 Tirzepatide (Mounjaro) 5 mg/ 0.5 mL pen injector Discontinued 5 MG SC EVERY WEEK 2 June 10, 2022 12:00am July 07, 2022 2:24pm Problems Active Problems Problem Classification Problem Date Documented Date Episodic/Chronic Diabetes mellitus without complication (20 sources) Type 2 diabetes mellitus; Translations: [Type 2 diabetes mellitus without complications] Onset: 08-01-2024 Chronic Disorders of lipid metabolism (15 sources) Mixed hyperlipidemia; Translations: [Hyperlipidemia] Onset: 04-15-2016 Chronic Essential hypertension (19 sources) Essential (primary) hypertension; Translations: [Hypertensive disorder] Onset: 04-15-2016 Chronic Immunizations and screening for infectious disease (8 sources) Patient encounter status; Translations: [Encounter for screening for COVID-19] 01-23-2021 Episodic Joint disorders and dislocations; trauma-related (9 sources) Acute meniscal tear, medial; Translations: [Other tear of medial meniscus, current injury, left knee, initial encounter] Episodic Malaise and fatigue (6 sources) Fatigue; Translations: [Other fatigue] 04-01-2023 Episodic Nonmalignant breast conditions (6 sources) Breast lump; Translations: [Unspecified lump in unspecified breast] 04-01-2023 Episodic Open wounds of extremities (10 sources) Open wound of thumb; Translations: [Unspecified open wound of right thumb without damage to nail, initial encounter] Episodic Osteoarthritis (17 sources) Osteoarthritis of right knee joint; Translations: [Unilateral primary osteoarthritis, right knee] Chronic Other aftercare (8 sources) Follow-up status; Translations: [Encounter for other orthopedic aftercare] 06-24-2021 Episodic Other aftercare (2 sources) Encounter for other orthopedic aftercare; Translations: [Unspecified orthopedic aftercare] Episodic Other and unspecified benign neoplasm (8 sources) Polyp of colon; Translations: [Polyp of colon] 02-25-2021 Episodic Other and unspecified benign neoplasm (2 sources) Polyp of colon; Translations: [Benign neoplasm of colon] Episodic Other connective tissue disease (2 sources) Plantar fasciitis of left foot; Translations: [Plantar fascial fibromatosis] 08-02-2024 Episodic Other liver diseases (4 sources) Non-alcoholic fatty liver; Translations: [Fatty (change of) liver, not elsewhere classified] Chronic Other liver diseases (8 sources) Fatty (change of) liver, not elsewhere classified; Translations: [Other chronic nonalcoholic liver disease] Onset: 08-05-2024 Chronic Other nervous system disorders (8 sources) Acute postoperative pain; Translations: [Other acute postprocedural pain] 06-10-2021 Episodic Other nervous system disorders (1 source) Other acute postprocedural pain; Translations: [Other acute postoperative pain] Episodic Other nutritional; endocrine; and metabolic disorders (8 sources) Morbid obesity; Translations: [Morbid (severe) obesity due to excess calories] 07-18-2019 Chronic Other skin disorders (8 sources) Skin tag; Translations: [Other hypertrophic disorders of the skin] 12-14-2019 Episodic Other upper respiratory disease (8 sources) Cellulitis of external nose ; Translations: [Abscess, furuncle and carbuncle of nose] 07-11-2018 Episodic Other upper respiratory infections (8 sources) Acute sinusitis; Translations: [Acute sinusitis, unspecified] 05-16-2018 Episodic Residual codes; unclassified (4 sources) Sleep apnea; Translations: [Sleep apnea, unspecified] 05-20-2022 Chronic Residual codes; unclassified (2 sources) Sleep apnea, unspecified; Translations: [Unspecified sleep apnea] 07-12-2023 Chronic Skin and subcutaneous tissue infections (2 sources) Cellulitis of right lower limb; Translations: [Cellulitis and abscess of leg, except foot] Episodic Spondylosis; intervertebral disc disorders; other back problems (2 sources) Chronic low back pain; Translations: [Chronic low back pain] 08-02-2024 Episodic Sprains and strains (5 sources) Strain of muscle and/or tendon of lower leg; Translations: [Strain of unspecified muscle and tendon at ankle and foot level, left foot, initial encounter] 07-15-2023 Episodic Unclassified (1 source) Unknown / UNK(Unknown) Onset: 11-14-2016 Viral infection (16 sources) Disease caused by 2019-nCoV; Translations: [COVID-19] 01-27-2021 Episodic Comment on above: Positive test 2020 Past or Other Problems Problem Classification Problem Date Documented Da te Episodic/Chronic Diabetes mellitus without complication (2 sources) Impaired fasting glucose; Translations: [Impaired fasting glucose] Onset: 11-14-2016 Episodic Results Test Name Value Interpretation Reference Range Facility Anion gap in Serum or Plasma Ordered By: Roger Gibson on 08-01-2024 Anion gap [Moles/Vol] 12 mmol/L 5-15 [facility] BUN/creatinine ratioOrdered By: Roger Gibson on 08-01-2024 Urea nitrogen/Creatinine [Mass ratio] 14.9 mg/mg 10-20 [facility] Bilirubin, totalOrdered By: Roger Gibson on 08-01-2024 Bilirubin [Mass/Vol] 0.79 mg/dL 0.00-1.30 [facility] Calculated very low density lipoprotein (VLDL) cholesterol measurementOrdered By: Roger Gibson on 08-01-2024 VLDL Cholesterol 38 mg/dL 5-40 [facility] Carbon dioxide, total [Moles /volume] in Central venous bloodOrdered By: Roger Gibson on 08-01-2024 CO2 [Moles/Vol] 27.1 mmol/L 21.0-32.0 [facility] Chloride assayOrdered By: Do chan Gibson on 08-01-2024 Chloride [Moles/Vol] 101 mmol/L 98-108 [facility] Comprehensive Metabolic Prof ilon 08-01-2024 Albumin [Mass/Vol] 4.4 g/dL Normal 3.5-5.0 [facility] Comment on above: Performed By: #### L [id number], L501.9985, [id number] #### [facility] [address], [address] Albumin/Globulin [Mass ratio] 1.7 {ratio} Normal 0.9-2.4 [facility] Comment on above: Performed By: #### L 500.4050, [id number], [id number] #### [facility] [address], [address] ALK PHOS 49 U/L Normal 40-129 [facility] Comment on above: Performed By: #### L [id number], [id number], [id number] #### [facility] [address], [address] ALT [Catalytic activity/Vol] 67 U/L High <=46 [facility] Comment on above: Performed By: #### L [id number], [id number], [id number] #### [facility] [address], [address] AST [Catalytic activity/Vol] 46 U/L High <=37 [facility] Comment on above: Performed By: #### L [id number], [id number], [id number] #### [facility] [address], [address] Bilirubin [Mass/Vol] 0.79 mg/dL Normal 0.00-1.30 [facility] Comment on above: Performed By: #### L [id number], [id number], [id number] #### [facility] [address], [address] BUN/CRE 14.9 RATIO Normal 10-20 [facility] Comment on above: Performed By: #### L [id number], [id number], [id number] #### [facility] [address], [address] Calcium [Mass/Vol] 9.4 mg/dL Normal 7.6-11.0 [facility] Comment on above: Performed By: #### L [id number], [id number], [id number] #### [facility] [address], [address] Chloride [Moles/Vol] 101 mmol/L Normal 98-108 [facility] Comment on above: Performed By: #### L [id number], [id number], [id number] #### [facility] [address], [address] CO2 [Moles/Vol] 27.1 mmol/L Normal 21.0-32.0 [facility] Comment on above: Performed By: #### L [id number], [id number], [id number] #### [facility] [address] [place], [address] Creatinine [Mass/Vol] 1.16 mg/dL Normal 0.70-1.20 [facility] Comment on above: Performed By: #### L [id number], [id number], [id number] #### [facility] [address], [address] GAP 12 Normal 5-15 [facility] Comment on above: Performed By: #### L [id number], [id number], [id number] #### [facility] [address], [address] GFR/1.73 sq M.predicted among non-blacks MDRD (S/P/Bld) [Vol rate/Area] 80 mL/min/{1.73_m2} Normal >60 [facility] Comment on above: Result Comment: mL/m in/1.73m2 CKD-EPI Creatinine Equation (2020) Performed By: #### L [id number], [id number], [id number] #### [facility] [address], [address] Globulin (S) [Mass/Vol] 2.6 g/dL Normal 2.2-4.2 [facility] Comment on above: Performed By: #### L [id number], [id number], [id number] #### [facility] [address], [address] Glucose [Mass/Vol] 90 mg/dL Normal 70-99 [facility] Comment on above: Performed By: #### L [id number], [id number], [id number] #### [facility] [address], [address] Potassium [Moles/Vol] 4.0 mmol/L Normal 3.3-5.1 [facility] Comment on above: Performed By: #### L 500.4050, [id number], [id number] #### [facility] [address], [address] Sodium [Moles/Vol] 139 mmol/L Normal 133-145 [facility] Comment on above: Performed By: #### L 500.4050, [id number], [id number] #### [facility] [address], [address] T PROT 7.0 g/dL Normal 5.9-8.4 [facility] Comment on above: Performed By: #### L 500.4050, [id number], [id number] #### [facility] [address], [address] Urea nitrogen [Mass/Vol] 17 mg/dL Normal 4-19 [facility] Comment on above: Performed By: #### L [id number], [id number], [id number] #### [facility] [address], [address] GFR/1.73 sq M.predicted tommy g non-blacks MDRD (S/P/Bld) [Vol rate/Area]Ordered By: Roger Gibson on 08-01-2024 Estimated GFR (MDRD) Non-Af Amer 80 >60 [facility] Comment on above: mL/min/1.73m2 CKD-EP I Creatinine Equation (2020) Hemoglobin A1con 08-01-2024 HbA1c (Bld) [Mass fraction] 5.7 % Normal <=5.6 [facility] Comment on above: Performed By: #### L [id number], [id number], [id number] #### [facility] [address], [address] Hemoglobin A1c percentageOrd ered By: Roger Gibson on 08-01-2024 HbA1c (Bld) [Mass fraction] 5.7 % >5.7 [facility] Internal Medicine Office Vis iton 08-01-2024 Internal Medicine Office Visit [facility] [facility] [address] [place] [address] [place] [address] OFFICE VISIT Date of Service: 08/01/24 MR#: [id number] Acct: [id number] Name: MICHA FLORES Rep #: [id number] 03 : 1980 Provider: Dr. Roger larson, DO Age/Sex: 43/M Location: [facility] Status: Signed Intake Vital Signs 07/15/23 09:23 08/01/24 16:09 Height 6 ft 2 in 6 ft 2 in Weight: 369 lb BMI 47.3 BP 120/84 H Blood Pressure Location Lt brachial Position Sitting Respiration 16 Pulse 46 L Pulse Source Monitor Temp 97.5 F L Temp Source Temporal Pulse Oximetry (%) 97 Oxygen Delivery Method room air Intake Visit Reasons: MED FU Chief Complaint: I need medication refilled. General Service Officer Required: No Is patient in pain?: No Allergies erythromycin base Allergy (Verified 08/01/24 16:03) Hives Medications ???Medication ???Instructions ???Recorded ???Confirmed ???Type blood sugar diagnostic (FreeStyle #50 ea 06/18/20 08/01/24 Rx Test strips) blood-glucose meter (FreeStyle #1 ea 06/18/20 08/01/24 Rx System Kit) lancets 28 gauge (FreeStyle #50 ea 06/18/20 08/01/24 Rx Lancets) Full face CPAP mask #1 ea 03/10/23 08/01/24 Rx Auto-training CPAP #1 ea 08/31/23 08/01/24 Rx amlodipine 10 mg tablet 10 mg PO DAILY #90 tabs 08/01/24 0 08/01/24 Rx hydrochlorothiazide 25 mg tablet See Rx Instructions .Route 5 08/01/24 Rx .COMPLEX #90 tabs lisinopril 40 mg tablet 40 mg PO DAILY #90 tabs 08/01/24 0 08/01/24 Rx metoprolol succinate 50 mg capsule 50 mg PO DAILY #90 ea 08/01/24 0 08/01/24 Rx sprinkle, ext. release 24 hr Nurse's Note: Needs refills on everything. [facility] Medical History Sleep apnea Wears glasses High cholesterol Heartburn Non-smoker CPAP (continuous positive airway pressure) dependence History of edema History of stress test Hyperlipidemia Colon polyps Encounter for screening for COVID-19 Frequent headaches Fatty liver Diabetes Seasonal allergies GERD (gastroesophageal reflux disease) HTN (hypertension) Surgical History Hx of right knee surgery History of tonsillectomy H/O eye surgery H/O hernia repair Family History (Updated 08/01/24 @ 16:09 by Aisha Mahajan MA) Aunt Colon cancer Other Anxiety Arthritis Diabetes Heart disease Hypertension Thyroid disorder Social History Smoking Status: Never smoker alcohol intake: current alcohol intake frequency: holidays/special occasions only substance use type: does not use what type of physical activity do you participate in: none HPI HPI Chief Complaint: I need medication refilled. Details: MICHA FLORES, is a 43 M who presents to the office today for a visit to have his medication refilled. He says in general he is doing well. He has some problems with pain in his left heel and he has been diagnosed with plantar fasciitis in the past. He also has some upper lumbar back pain that seems to be on and off again and is not radicular. He also has problems with occasional stiff neck. Other than that he voices no other complaints ROS Const Constitutional: No body ache, chills, excessive sweating, fatigue, fever(s), frequent falls, headache(s), snoring, weakness, sleep problems or change in appetite Eyes Eyes: No blurry vision, change in vision, eye pain or Light sensitivity ENT ENT: No abnormal hearing, ear or mastoid pain, tinnitus, nasal congestion, headache(s), neck pain or sore throat Resp Respiratory: No cough, shortness of breath, snoring or wheezing Cardio Cardiology: No chest pain at rest, chest pain with exertion, excessive sweating, shortness of breath, dyspnea on exertion, lightheadedness, orthopnea or palpitations Gastro GI: No abdominal pain, change in bowel habits, constipation, cramping, diarrhea, nausea/dyspepsia or vomiting Genitourinary Male: No burning urination, painful urination, urinary incontinence or urinary frequency Musc Musculoskeletal: No abnormal gait, joint pain, back pain, limited range of motion, neck pain or numbness Skin Skin: No dry skin, redness, lesions, itchy eyes, rash or wounds Neuro Neurology: No abnormal gait, abnormal hearing, weakness, frequent falls, headache(s), memory loss or numbness Psych Psychiatric: No anxiety, No change in appetite, No depression, No memory loss and No Thoughts of harming yourself/Others Endo Endocrine: No cold intolerance, excessive sweating, fatigue, flushing, heat intolerance, increased thirst/drinking or increased hunger Aller/Imm Allergy/Immunologic: No itchy eyes, seasonal allergy symptoms, hives or wheezing Pako/Lymp (more content not included)... Normal [facility] LDL calc ser/plasOrdered By: Roger Gibson on 08-01-2024 LDL Cholesterol, Calculated 107 mg/dL [facility] Comment on above: Rewgwbjabz=901-269 m g/dL & Higher Pnko=232 mg/dL or greater Laboratory - Chemistry and C hemistry - challengeOrdered By: Roger Gibson on 08-01-2024 AST [Catalytic activity/Vol] 46 U/L High <38 [facility] Lipid Profileon 08-01-2024 CHOL:HDL 4.71 Normal [facility] Comment on above: Performed By: #### L 500.9080, L501.9910, L500.4100 #### [facility] Laboratory [address] [place], [place], [id number] Cholesterol [Mass/Vol] 185 mg/dL Normal <=200 [facility] Comment on above: Result Comment: Chol esterol level, Desirable <200 mg/dL Borderline high cholesterol 200-239 mg/dL High cholesterol >=240 mg/dL Recommendations of the NCEP Adult Treatment Panel for the following risk-cutoff thresholds for the [place] population. Performed By: #### L 500.4050, L501.9985, L500.4100 #### [facility] [address], [address] Cholesterol in HDL [Mass/Vol] 39 mg/dL Low [facility] Comment on above: Result Comment: Keerthi onal Cholesterol Education Program (NCEP) guidelines: <40 mg/dL: Low HDL-cholesterol (major risk factor for CHD) >= 60 mg/dL: High HDL-cholesterol (negative risk factor for CHD) HDL-cholesterol is affected by a number of factors, e.g. smoking, exercise, hormones, sex and age. Performed By: #### L 500.4050, L501.9985, L500.4100 #### [facility] [address], [address] Cholesterol in LDL [Mass/Vol] 107 mg/dL Normal [facility] Comment on above: Result Comment: Bord jxhopf=507-968 mg/dL Higher Bdio=379 mg/dL or greater Performed By: #### L 500.4050, L501.9985, L500.4100 #### [facility] [address], [address] Cholesterol in VLDL [Mass/Vol] 38 mg/dL Normal 5-40 [facility] Comment on above: Performed By: #### L 500.4050, L501.9985, L500.4100 #### [facility] [address], [address] Triglyceride [Mass/Vol] 192 mg/dL Normal [facility] Comment on above: Result Comment: The drugs N-Acetylcysteine and Metamizole may falsely depress this assay. Normal range: <150 mg/dL Borderline High: 150-199 mg/dL High: 200-499 mg/dL Very High: >500 mg/dL Performed By: #### L 500.4050, L501.9985, L500.4100 #### [facility] [place], [address] Potassium (Unsp spec) [Mass/ Vol]Ordered By: Roger Gibson on 08-01-2024 Potassium [Moles/Vol] 4.0 mmol/L 3.3-5.1 [facility] Screening total cholesterol/ high density lipoprotein (HDL) cholesterol ratioOrdered By: Roger Gibson on 08-01-2024 Cholesterol.total/Chol esterol in HDL [Mass ratio] 4.71 {ratio} [facility] Serum creatinine measurement (mass/volume)Ordered By: Roger Gibson on 08-01-2024 Creatinine [Mass/Vol] 1.16 mg/dL 0.70-1.20 [facility] Serum globulin measurementOr dered By: Roger Gibson 08-01-2024 Globulin (S) [Mass/Vol] 2.6 g/dL 2.2-4.2 [facility] Serum glucose measurement (m ass/volume)Ordered By: Roger Gibson 08-01-2024 Glucose [Mass/Vol] 90 mg/dL 70-99 [facility] Serum or plasma alanine kapadia otransferase (ALT) measurementOrdered By: Roger Gibson 08-01-2024 ALT [Catalytic activity/Vol] 67 U/L High <47 [facility] Serum or plasma albumin kaylie urement (mass/volume)Ordered By: Roger Gibson 08-01-2024 Albumin [Mass/Vol] 4.4 g/dL 3.5-5.0 [facility] Serum or plasma albumin/glob ulin mass ratioOrdered By: Roger Gibson 08-01-2024 Albumin/Globulin [Mass ratio] 1.7 {ratio} 0.9-2.4 [facility] Serum or plasma alkaline batsheva sphatase measurementOrdered By: Roger Gibson 08-01-2024 ALP [Catalytic activity/Vol] 49 U/L 40-129 [facility] Serum or plasma calcium kaylie urement (mass/volume)Ordered By: Roger Gibson 08-01-2024 Calcium [Mass/Vol] 9.4 mg/dL 7.6-11.0 [facility] Serum or plasma cholesterol in HDL measurement (mass/volume)Ordered By: Roger Gibson on 08-01-2024 Cholesterol in HDL [Mass/Vol] 39 mg/dL Low >40 [facility] Comment on above: National Cholesterol Education Program (NCEP) guidelines:<40 mg/dL: Low HDL-cholesterol (major risk factor for CHD)>= 60 mg/dL: High HDL-cholesterol (negative risk factor for CHD)HDL-cholesterol is affected by a number of factors, e.g. smoking, exercise, hormones, sex and age. Serum or plasma cholesterol measurement (mass/volume)Ordered By: Roger Gibson on 08-01-2024 Cholesterol [Mass/Vol] 185 mg/dL <201 [facility] Comment on above: Cholesterol level, D esirable <200 mg/dLBorderline high cholesterol 200-239 mg/dLHigh cholesterol >=240 mg/dLRecommendations of the NCEP Adult Treatment Panel for the following risk-cutoff thresholds for the [place] population. Serum or plasma urea nitroge n measurement (mass/volume)Ordered By: Roger Gibson on 08-01-2024 Urea nitrogen [Mass/Vol] 17 mg/dL 4-19 [facility] Sodium levelOrdered By: Pa Gibson on 08-01-2024 Sodium [Moles/Vol] 139 mmol/L 133-145 [facility] Total proteinOrdered By: Nolan Gibson on 08-01-2024 Protein [Mass/Vol] 7.0 g/dL 5.9-8.4 [facility] Triglycerides measurementOrd ered By: Roger Gibson on 08-01-2024 Triglyceride [Mass/Vol] 192 mg/dL <199 [facility] Comment on above: The drugs N-Acetylcy steine and Metamizole may falsely depress this assay. Normal range: <150 mg/dLBorderline High: 150-199 mg/dLHigh: 200-499 mg/dLVery High: >500 mg/dL Basophil percentageOrdered B y: Roger Gibson on 04-10-2023 Testosterone [Mass/Vol] 311 ng/dL 264-916 [facility] Comment on above: Adult male reference interval is based on a population ofhealthy nonobese males (BMI <30) between 19 and 39 yearsold. nely Denise.al. JCEM 2017,102;0871-3922. PMID:[id number]. Free testosterone percentage Ordered By: Roger Gibson on 04-10-2023 Testosterone Free/Testosterone.tota l [Mass fraction] 3.18 % 1.50-4.20 [facility] Comment on above: Performed at: - [facility] [id number] Director: Ryan Dennison PhD, Phone: [phone] at: - [facility] [id number] Director: Norris Boyd MD, Phone: [phone] Serum or plasma testosterone free measurement (mass/volume)Ordered By: Roger Gibson on 04-10-2023 Testosterone Free [Mass/Vol] 9.89 ng/dL 5.00-21.00 [facility] Laboratory - Hematology and Cell countson 01-27-2023 HbA1c (Bld) [Mass fraction] 5.6 % 4.2-6.3 [facility] Absolute lymphocyte counton 02-24-2022 Lymphocytes Auto (Unsp spec) [#/Vol] 2.13 10*3/uL 0.83-4.51 [facility] Work Phone: Atypical perinuclear antineu trophil cytoplasmic antibodies measurementon 02-24-2022 Neutrophil cytoplasmic Ab.perinuclear.atypica l IF (S) [Titer] <1:20 titer Neg:<1:20 [facility] Work Phone: Comment on above: The atypical pANCA p attern has been observed in asignificant percentage of patients with ulcerative colitis,primary sclerosing cholangitis and autoimmune hepatitis. Basophil percentageon 2021 Ammonia (P) [Moles/Vol] 28.0 umol/L 11-32 [facility] Work Phone: Basophil percentage < 0.2 AI 0.0-0.9 [facility] Work Phone: Basophils/100 WBC (Bld) 0.7 % 0-1 [facility] Work Phone: Bilirubin [Mass/Vol] 0.70 mg/dL 0.20-1.00 [facility] Work Phone: Comment on above: For patients on eltr ombopag therapy, use of Dimension [place] TBIL is not recommended. Chloride [Moles/Vol] 107 mmol/L 98-107 [facility] Work Phone: Cholesterol [Mass/Vol] 160 mg/dL <200 [facility] Work Phone: Comment on above: <200 mg/dL Desirable 200-240 mg/dL Borderline >240 mg/dL High Risk Eosinophils/100 WBC (Bld) 2.0 % 0-5 [facility] Work Phone: Glucose [Mass/Vol] 124 mg/dL 74-106 [facility] Work Phone: Comment on above: Fasting Glucose resu lt from 100 to 125 mg/dL suggests IMPAIRED HOMEOSTASIS per A.D.A. criteria. Neutrophils (Bld) [#/Vol] 2.6 10*3/uL 2.0-7.7 [facility] Work Phone: [phone] Neutrophils/100 WBC (Bld) 48.1 % 47-70 [facility] Work Phone: [phone] Potassium [Moles/Vol] 4.2 mmol/L 3.5-5.1 [facility] Work Phone: Protein [Mass/Vol] 6.9 g/dL 6.4-8.2 [facility] Work Phone: [phone] Sodium [Moles/Vol] 140 mmol/L 136-145 [facility] Work Phone: [phone] Triglyceride [Mass/Vol] 162 mg/dL <199 [facility] Work Phone: Comment on above: The drugs N-Acetylcy steine and Metamizole may falsely depress this assay.Serum Triglycerides Reference Interval Normal <150 mg/dL Borderline high 150 - 199 mg/dL High 200 - 499 mg/dL Very High > or = 500 mg/dL WBC (Bld) [#/Vol] 5.4 10*3/uL 4.4-11.0 [facility] Work Phone: Blood erythrocytes count (nu mber/volume)on 02-24-2022 RBC (Bld) [#/Vol] 4.69 10*6/uL 4.6-6.2 [facility] Work Phone: Blood hemoglobin measurement (mass/volume)on 02-24-2022 Hemoglobin (Bld) [Mass/Vol] 15.5 g/dL 13.0-16.5 [facility] Work Phone: Blood lymphocytes/100 leukoc yteson 02-24-2022 Lymphocytes/100 WBC (Bld) 39.7 % 19-41 [facility] Work Phone: Blood monocytes/100 leukocyt eson 02-24-2022 Monocytes/100 WBC (Bld) 9.3 % 0-10 [facility] Work Phone: Blood platelet mean volumeon 02-24-2022 Platelet mean volume (Bld) [Entitic vol] 11.0 fL 6.2-12.0 [facility] Work Phone: Determination of erythrocyte mean corpuscular volume (MCV)on 02-24-2022 MCV (RBC) [Entitic vol] 91.0 fL 80-94 [facility] Work Phone: Erythrocyte sedimentation ra leif 02-24-2022 ESR (Bld) [Velocity] 8 mm/h 0-20 [facility] Work Phone: HIV 1 and HIV-2 antibody ass ay with HIV-1 p24 antigen detectionon 02-24-2022 HIV 1+2 Ab+HIV1 p24 Ag IA Ql Non-Reactive Nonreactive [facility] Work Phone: Hematocrit Auto (Bld) [Volum e fraction]on 02-24-2022 Hematocrit (Bld) [Volume fraction] 42.7 % 40-54 [facility] Work Phone: [phone] INR in Blood by Coagulation assayon 02-24-2022 INR Coag (Bld) [Relative time] 1.0 {INR} [facility] Work Phone: [phone] Laboratory - Chemistry and C hemistry - challengeon 02-24-2022 ALP [Catalytic activity/Vol] 43 U/L 45-117 [facility] Work Phone: ALT [Catalytic activity/Vol] 106 U/L 16-61 [facility] Work Phone: CO2 [Moles/Vol] 29.0 mmol/L 21.0-32.0 [facility] Work Phone: Globulin (S) [Mass/Vol] 3.2 g/dL 2.2-4.2 [facility] Work Phone: [phone] Urea nitrogen/Creatinine [Mass ratio] 15.3 mg/mg 10-20 [facility] Work Phone: [phone] Laboratory - Coagulationon PT Coag (PPP) [Time] 13.0 s 11.7-14.9 [facility] Work Phone: [phone] Laboratory - Hematology and Cell countson 02-24-2022 Erythrocyte distribution width (RBC) [Entitic vol] 40.8 fL 35.1-43.9 [facility] Work Phone: [phone] Erythrocyte distribution width (RBC) [Ratio] 12.4 % 11.6-14.6 [facility] Work Phone: [phone] Immature granulocytes/100 WBC (Bld) 0.200 % 0.0-0.9 [facility] Work Phone: [phone] Comment on above: IG% - Immature Granu locytes (promyelocytes, myelocytes and metamyelocytes) > 1% indicates that a LEFT SHIFT is Present. MCH (RBC) [Entitic mass] 33.0 pg 27.0-32.0 [facility] Work Phone: [phone] Nucleated RBC/100 WBC (Bld) [Ratio] 0 % 0-5 [facility] Work Phone: [phone] MCHC Auto (RBC) [Mass/Vol]on 02-24-2022 MCHC (RBC) [Mass/Vol] 36.3 g/dL 32-36 [facility] Work Phone: No Panel Informationon 02-24 Centromere B Antibody <0.2 AI 0.0-0.9 [facility] Work Phone: Ceruloplasmin 21.3 mg/dL 16.0-31.0 [facility] Work Phone: Estimated GFR (MDRD) Amer 94 mL/min >60 [facility] Work Phone: Comment on above: GFR Calc Estimated GFR (MDRD) Non-Af Amer 78 mL/min >60 [facility] Work Phone: Comment on above: Non- GFR Calc Haptoglobin 110 mg/dL 23-355 [facility] Work Phone: Comment on above: Performed at: [facility] [address] [id number] Director: Ryan Dennison PhD, Phone: [phone] at: - [facility] [id number] Director: Norris Boyd MD, Phone: [phone] Hepatitis A IgM Antibody Negative Negative [facility] Work Phone: Hepatitis B Core IgM Antibody Negative Negative [facility] Work Phone: Hepatitis C Antibody (EIA) <0.1 s/co ratio 0.0-0.9 [facility] Work Phone: Hepatitis C Antibody Comment Comment . [facility] Work Phone: Comment on above: NegativeNot infected with HCV, unless recent infection issuspected or other evidence exists to indicate HCVinfection. COIL WINDER REPAIR Antibody 0.2 AI 0.0-0.9 [facility] Work Phone: Platelets bldon 02-24-2022 Platelets (Bld) [#/Vol] 160 10*3/uL 150-450 [facility] Work Phone: Serum DNA double strand anti body assay (units/volume)on 02-24-2022 DNA double strand Ab Qn (S) [IU]/mL 0-9 [facility] Work Phone: Comment on above: Negative <5 Equivoca l 5 - 9 Positive >9 Serum Marizol-1 antibody assay (u nits/volume)on 02-24-2022 Marizol-1 extractable nuclear Ab Qn (S) <0.2 AI 0.0-0.9 [facility] Work Phone: Serum Scl-70 extractable nuc lear antibody assay (units/volume)on 02-24-2022 SCL-70 extractable nuclear Ab Qn (S) <0.2 AI 0.0-0.9 [facility] Work Phone: Serum Dunham extractable nucl ear antibody detectionon 02-24-2022 Dunham extractable nuclear Ab Ql (S) <0.2 AI 0.0-0.9 [facility] Work Phone: Serum classic neutrophil cyt oplasmic antibody assay (units/volume)on 02-24-2022 Neutrophil cytoplasmic Ab.classic Qn (S) <1:20 titer Neg:<1:20 [facility] Work Phone: Serum mitochondria antibody detectionon 02-24-2022 Mitochondria Ab Ql (S) <20.0 Units 0.0-20.0 W [facility] Work Phone: Comment on above: Negative 0.0 - 20.0 Equivocal 20.1 - 24.9 Positive >24.9Mitochondrial (M2) Antibodies are found in 90-96% ofpatients with primary biliary cirrhosis.Performed at: [address] [id number] Director: Ryan Dennison PhD, Phone: [phone] Serum or plasma C reactive p rotein measurement (mass/volume)on 02-24-2022 CRP [Mass/Vol] 2.92 mg/L 0.0-3.0 [facility] Work Phone: Comment on above: C-Reactive Protein ( CRP) provides useful information for thediagnosis, therapy and monitoring of inflammatory processesand associated diseases. For the evaluation of Relative Riskfor Cardiovascular Disease, a High Sensitivity CRP (HSCRP)should be ordered. Serum or plasma actin IgG an tibody assay (units/volume)on 02-24-2022 Actin IgG Qn 4 Units 0-19 [facility] Work Phone: Comment on above: Negative 0 - 19 Weak positive 20 - 30 Moderate to strong positive >30 Actin Antibodies are found in 52-85% of patients with autoimmune hepatitis or chronic active hepatitis and in 22% of patients with primary biliary cirrhosis. Serum or plasma albumin kaylie urement (mass/volume)on 02-24-2022 Albumin [Mass/Vol] 3.7 g/dL 3.2-5.0 [facility] Work Phone: Serum or plasma albumin/glob ulin mass ratioon 02-24-2022 Albumin/Globulin [Mass ratio] 1.2 {ratio} 0.9-2.4 [facility] Work Phone: Serum or plasma [id number] protein tumor marker measurement (units/volume)on 02-24-2022 AFP.tumor marker Qn 2.0 ng/mL 0.0-6.9 [facility] Work Phone: Comment on above: [employer] El ectrochemiluminescence Immunoassay(ECLIA)Values obtained with different assay methods or kits cannotbe used interchangeably. Results cannot be interpreted asabsolute evidence of the presence or absence of malignantdisease.This test is not interpretable in females. Serum or plasma angiotensin converting enzyme measurement (enzymatic activity/volume)on 02-24-2022 Angiotensin converting enzyme [Catalytic activity/Vol] 17 U/L 14-82 [facility] Work Phone: Serum or plasma calcium kaylie urement (mass/volume)on 02-24-2022 Calcium [Mass/Vol] 8.8 mg/dL 8.5-10.1 [facility] Work Phone: Serum or plasma cholesterol in HDL measurement (mass/volume)on 02-24-2022 Cholesterol in HDL [Mass/Vol] 35 mg/dL >40 [facility] Work Phone: Comment on above: The drugs N-Acetylcy steine and Metamizole may falsely depress this assay. Reference Range HDL <40 mg/dL Low HDL Cholesterol HDL >or= 60 mg/dL High HDL Cholesterol Serum or plasma cholesterol in VLDL measurement (mass/volume)on 02-24-2022 Cholesterol in VLDL [Mass/Vol] 32 mg/dL 5-40 [facility] Work Phone: Serum or plasma creatinine m easurement (mass/volume)on 02-24-2022 Creatinine [Mass/Vol] 1.11 mg/dL 0.70-1.30 [facility] Work Phone: Comment on above: The validity of the calculated GFR & GFRAA in patients over 70 years has not been determined. Clinical correlation is essential. Serum or plasma ferritin avelino surement (mass/volume)on 02-24-2022 Ferritin [Mass/Vol] 119 ng/mL 26-388 [facility] Work Phone: Serum or plasma hepatitis B virus surface antigen detection by immunoassayon 02-24-2022 HBV surface Ag IA Ql Negative Negative [facility] Work Phone: Serum or plasma low density lipoprotein (LDL) cholesterol measurement (mass/volume)on 02-24-2022 Cholesterol in LDL [Mass/Vol] 93 mg/dL 0-130 [facility] Work Phone: Serum or plasma urea nitroge n measurement (mass/volume)on 02-24-2022 Urea nitrogen [Mass/Vol] 17 mg/dL 7-18 [facility] Work Phone: Serum perinuclear neutrophil cytoplasmic antibody titer by immunofluorescenceon 02-24-2022 Neutrophil cytoplasmic Ab.perinuclear IF (S) [Titer] <1:20 titer Neg:<1:20 [facility] Work Phone: Comment on above: The presence of posi tive fluorescence exhibiting P-ANCA orC-ANCA patterns alone is not specific for the diagnosis ofWegener's Granulomatosis (WG) or microscopic polyangiitis.Decisions about treatment should not be based solely onANCA IFA results. The [employer] Consensusrecommends follow up testing of positive sera with both IA-3 and MPO-ANCA enzyme immunoassays. As many as 5% serumsamples are positive only by EIA. Ref. AM J Clin [id number];[id number]. Thin prep Papanicolaou smear with manual screeningon 02-24-2022 Thin prep Papanicolaou smear with manual screening 54 U/L 15-37 [facility] Work Phone: Thin prep Papanicolaou smear with manual screening 4 5-15 [facility] Work Phone: Thin prep Papanicolaou smear with manual screening 204 U/L 87-241 [facility] Work Phone: Thin prep Papanicolaou smear with manual screening 87 ug/dL 69-132 [facility] Work Phone: Comment on above: Detection Limit = 5 Urine creatinine measurement (mass/volume)on 02-24-2022 Creatinine (U) [Mass/Vol] 136.00 mg/dL NO RANGE EST. [facility] Work Phone: Urine protein measurement (m ass/volume)on 02-24-2022 Protein (U) [Mass/Vol] 28.0 mg/dL 0.0-11.8 [facility] Work Phone: Urine protein/creatinine mas s ratioon 02-24-2022 Protein/Creatinine (U) [Mass ratio] 206 mg/g CRE 0-200 [facility] Work Phone: Whole blood hemoglobin A1c/t otal hemoglobin ratio (mass fraction)on 02-24-2022 HbA1c (Bld) [Mass fraction] 5.7 % 3.8-5.6 [facility] Work Phone: Comment on above: Normal < 5.7 % Predi abetic 5.7 - 6.4 % Diabetic >or= 6.5 % Please note range changes. Glucose Glucometer (BldC) [M ass/Vol]on 2021 Glucose [Mass/Vol] 112 mg/dL 74-106 [facility] Work Phone: Comment on above: MANAGEMENT OF PATIEN T CARE PER NURSING PROTOCOL Laboratory - Hematology and Cell countson 12-03-2021 HbA1c (Bld) [Mass fraction] 5.7 % 4.2-6.3 [facility] Work Phone: Basophil percentageon 2021 Chloride [Moles/Vol] 105 mmol/L 98-[address] [facility] [address] [facility] Work Phone: Glucose [Mass/Vol] 90 mg/dL 74-106 [facility] Work Phone: Potassium [Moles/Vol] 4.3 mmol/L 3.5-5.1 Su ster [facility] Work Phone: Sodium [Moles/Vol] 139 mmol/L 136-145 [facility] Work Phone: Laboratory - Chemistry and C hemistry - challengeon 09-01-2021 Albumin [Mass/Vol] 4.0 g/dL 2.9-4.4 [facility] Work Phone: CO2 [Moles/Vol] 29.0 mmol/L 21.0-32.0 [facility] Work Phone: Urea nitrogen/Creatinine [Mass ratio] 13.1 mg/mg 10-20 [facility] Work Phone: No Panel Informationon 09-01 Addendum Document Comment . [facility] Work Phone: Comment on above: The SPE pattern appe ars unremarkable. Evidence ofmonoclonal protein is not apparent.Performed at: [address] [id number] Director: Ryan Dennison PhD, Phone: [phone] Mxpas-1-Lxafhlivz 0.2 g/dL 0.0-0.4 [facility] Work Phone: Ywffs-1-Bitwcrvah 0.9 g/dL 0.4-1.0 [facility] Work Phone: Estimated GFR (MDRD) Amer 65 mL/min >60 [facility] Work Phone: Comment on above: GFR Calc Estimated GFR (MDRD) Non-Af Amer 54 mL/min >60 [facility] Work Phone: Comment on above: Non- GFR Calc Gamma Globulins 0.8 g/dL 0.4-1.8 [facility] Work Phone: Miscellaneous Test See comment [facility] Work Phone: Comment on above: TEST RESULT LIMITSAn ti-PLA2R <1.8 RU/mL 0.0-19.9 Negative <14.0 Borderline 14.0-19.9 Positive >19.9 TESTING PERFORMED AT [facility]. ORIGINAL REPORT ON FILE IN LAB CONTAINS ADDITIONAL TEST SITE INFORMATION. Protein Fractions Elph [Inte rp]on 09-01-2021 Protein Fractions [Interp] Comment . [facility] Work Phone: Comment on above: Protein electrophore sis scan will follow via computer,mail, or film splicer delivery. Serum albumin to globulin ra rafa by protein electrophoresison 09-01-2021 Albumin/Globulin Elph [Mass ratio] 1.3 0.7-1.7 [facility] Work Phone: Serum globulin measurement ( mass/volume)on 09-01-2021 Globulin (S) [Mass/Vol] 3.0 g/dL 2.2-3.9 [facility] Work Phone: Serum or plasma beta globuli n measurement by electrophoresis (mass/volume)on 09-01-2021 Beta globulin Elph [Mass/Vol] 1.1 g/dL 0.7-1.3 [facility] Work Phone: Serum or plasma calcium kaylie urement (mass/volume)on 09-01-2021 Calcium [Mass/Vol] 9.6 mg/dL 8.5-10.1 [facility] Work Phone: Serum or plasma creatinine m easurement (mass/volume)on 09-01-2021 Creatinine [Mass/Vol] 1.53 mg/dL 0.70-1.30 [facility] Work Phone: Comment on above: The validity of the calculated GFR & GFRAA in patients over 70 years has not been determined. Clinical correlation is essential. Serum or plasma urea nitroge n measurement (mass/volume)on 09-01-2021 Urea nitrogen [Mass/Vol] 20 mg/dL 7-18 [facility] Work Phone: Thin prep Papanicolaou smear with manual screeningon 09-01-2021 Thin prep Papanicolaou smear with manual screening 5 5-15 [facility] Work Phone: Thin prep Papanicolaou smear with manual screening See comment [facility] Work Phone: Comment on above: NOT OBSERVED Total protein bloodon 2021 Protein [Mass/Vol] 7.0 g/dL 6.0-8.5 [facility] Work Phone: Urine creatinine measurement (mass/volume)on 09-01-2021 Creatinine (U) [Mass/Vol] 220.00 mg/dL NO RANGE EST. [facility] Work Phone: Urine protein measurement (m ass/volume)on 09-01-2021 Protein (U) [Mass/Vol] 153.6 mg/dL 0.0-11.8 W [facility] Work Phone: Urine protein/creatinine mas s ratioon 09-01-2021 Protein/Creatinine (U) [Mass ratio] 698 mg/g CRE 0-200 [facility] Work Phone: Laboratory - Hematology and Cell countson 08-29-2021 HbA1c (Bld) [Mass fraction] 6.0 % 4.2-6.3 [facility] Work Phone: Glucose Glucometer (BldC) [M ass/Vol]on 06-10-2021 Glucose [Mass/Vol] 95 mg/dL 70-110 [facility] Work Phone: Comment on above: MANAGEMENT OF PATIEN T CARE PER NURSING PROTOCOL No Panel Informationon 06-06 SARS-CoV-2 Antigen (Rapid) [facility] Work Phone: Absolute lymphocyte counton 05-30-2021 Lymphocytes Auto (Unsp spec) [#/Vol] 1.71 10*3/uL 0.83-4.51 [facility] Work Phone: [phone] Basophil percentageon 2021 Basophils/100 WBC (Bld) 0.5 % 0-1 [facility] Work Phone: [phone] Bilirubin [Mass/Vol] 1.00 mg/dL 0.20-1.00 [facility] Work Phone: Comment on above: For patients on eltr ombopag therapy, use of Dimension [place] TBIL is not recommended. Chloride [Moles/Vol] 107 mmol/L 98-107 [facility] Work Phone: [phone] Cholesterol [Mass/Vol] 108 mg/dL <200 [facility] Work Phone: Comment on above: <200 mg/dL Desirable 200-240 mg/dL Borderline >240 mg/dL High Risk Eosinophils/100 WBC (Bld) 2.1 % 0-5 [facility] Work Phone: [phone] Glucose [Mass/Vol] 83 mg/dL 74-106 [facility] Work Phone: [phone] Neutrophils (Bld) [#/Vol] 3.6 10*3/uL 2.0-7.7 [facility] Work Phone: [phone] Neutrophils/100 WBC (Bld) 58.2 % 47-70 [facility] Work Phone: [phone] Potassium [Moles/Vol] 3.9 mmol/L 3.5-5.1 [facility] Work Phone: [phone] Protein [Mass/Vol] 7.2 g/dL 6.4-8.2 [facility] Work Phone: [phone] Sodium [Moles/Vol] 138 mmol/L 136-145 [facility] Work Phone: Triglyceride [Mass/Vol] 124 mg/dL [facility] Work Phone: Comment on above: The drugs N-Acetylcy steine and Metamizole may falsely depress this assay.Serum Triglycerides Reference Interval Normal <150 mg/dL Borderline high 150 - 199 mg/dL High 200 - 499 mg/dL Very High > or = 500 mg/dL WBC (Bld) [#/Vol] 6.2 10*3/uL 4.4-11.0 [facility] Work Phone: Blood erythrocytes count (nu mber/volume)on 05-30-2021 RBC (Bld) [#/Vol] 5.02 10*6/uL 4.6-6.2 [facility] Work Phone: Blood hemoglobin measurement (mass/volume)on 05-30-2021 Hemoglobin (Bld) [Mass/Vol] 16.1 g/dL 13.0-16.5 [facility] Work Phone: Blood lymphocytes/100 leukoc yteson 05-30-2021 Lymphocytes/100 WBC (Bld) 27.8 % 19-41 [facility] Work Phone: [phone] Blood monocytes/100 leukocyt eson 05-30-2021 Monocytes/100 WBC (Bld) 11.1 % 0-10 [facility] Work Phone: Blood platelet mean volumeon 05-30-2021 Platelet mean volume (Bld) [Entitic vol] 10.5 fL 6.2-12.0 [facility] Work Phone: Determination of erythrocyte mean corpuscular volume (MCV)on 05-30-2021 MCV (RBC) [Entitic vol] 90.0 fL 80-94 [facility] Work Phone: Hematocrit Auto (Bld) [Volum e fraction]on 05-30-2021 Hematocrit (Bld) [Volume fraction] 45.2 % 40-54 [facility] Work Phone: Laboratory - Chemistry and C hemistry - challengeon 05-30-2021 ALP [Catalytic activity/Vol] 51 U/L 45-117 [facility] Work Phone: [phone] ALT [Catalytic activity/Vol] 147 U/L 16-61 [facility] Work Phone: [phone] CO2 [Moles/Vol] 27.0 mmol/L 21.0-32.0 [facility] Work Phone: [phone] Globulin (S) [Mass/Vol] 3.4 g/dL 2.2-4.2 [facility] Work Phone: [phone] Urea nitrogen/Creatinine [Mass ratio] 14.0 mg/mg 10-20 [facility] Work Phone: Laboratory - Hematology and Cell countson 05-30-2021 Erythrocyte distribution width (RBC) [Entitic vol] 41.4 fL 35.1-43.9 [facility] Work Phone: [phone] Erythrocyte distribution width (RBC) [Ratio] 12.7 % 11.6-14.6 [facility] Work Phone: [phone] Immature granulocytes/100 WBC (Bld) 0.300 % 0.0-0.9 [facility] Work Phone: Comment on above: IG% - Immature Granu locytes (promyelocytes, myelocytes and metamyelocytes) > 1% indicates that a LEFT SHIFT is Present. MCH (RBC) [Entitic mass] 32.1 pg 27.0-32.0 [facility] Work Phone: [phone] Nucleated RBC/100 WBC (Bld) [Ratio] 0 % 0-5 [facility] Work Phone: [phone] MCHC Auto (RBC) [Mass/Vol]on 05-30-2021 MCHC (RBC) [Mass/Vol] 35.6 g/dL 32-36 [facility] Work Phone: [phone] No Panel Informationon 05-30 Urine Microalbumin/Creatinin e Ratio 943.0 mg/g CRE <30 [facility] Work Phone: Estimated GFR (MDRD) Amer 106 mL/min >60 [facility] Work Phone: Comment on above: GFR Calc Estimated GFR (MDRD) Non-Af Amer 88 mL/min >60 [facility] Work Phone: Comment on above: Non- GFR Calc Thyroid Stimulating Hormone (TSH) 2.62 uIU/mL 0.358-3.74 [facility] Work Phone: Vitamin D 25-Hydroxy 26.3 ng/mL [facility] Work Phone: Comment on above: Vitamin D 25(OH) Sta tus Range Deficiency <20 ng/mL (50nmol/L) Insufficiency 20 - 30 ng/mL (50 - 75 nmol/L) Sufficiency 30 - 100 ng/mL (75 - 250 nmol/L) Toxicity >100 ng/mL (>250 nmol/L) Platelets bldon 05-30-2021 Platelets (Bld) [#/Vol] 208 10*3/uL 150-450 [facility] Work Phone: Serum or plasma albumin kaylie urement (mass/volume)on 05-30-2021 Albumin [Mass/Vol] 3.8 g/dL 3.2-5.0 [facility] Work Phone: Serum or plasma albumin/glob ulin mass ratioon 05-30-2021 Albumin/Globulin [Mass ratio] 1.1 {ratio} 0.9-2.4 [facility] Work Phone: Serum or plasma calcium kaylie urement (mass/volume)on 05-30-2021 Calcium [Mass/Vol] 8.8 mg/dL 8.5-10.1 [facility] Work Phone: Serum or plasma cholesterol in HDL measurement (mass/volume)on 05-30-2021 Cholesterol in HDL [Mass/Vol] 37 mg/dL [facility] Work Phone: Comment on above: The drugs N-Acetylcy steine and Metamizole may falsely depress this assay. Reference Range HDL <40 mg/dL Low HDL Cholesterol HDL >or= 60 mg/dL High HDL Cholesterol Serum or plasma cholesterol in VLDL measurement (mass/volume)on 05-30-2021 Cholesterol in VLDL [Mass/Vol] 25 mg/dL 5-40 [facility] Work Phone: Serum or plasma creatinine m easurement (mass/volume)on 05-30-2021 Creatinine [Mass/Vol] 1.00 mg/dL 0.70-1.30 [facility] Work Phone: Comment on above: The validity of the calculated GFR & GFRAA in patients over 70 years has not been determined. Clinical correlation is essential. Serum or plasma low density lipoprotein (LDL) cholesterol measurement (mass/volume)on 05-30-2021 Cholesterol in LDL [Mass/Vol] 46 mg/dL 0-130 [facility] Work Phone: Serum or plasma severe acute respiratory syndrome coronavirus 2 (SARS-CoV-2) IgG antion 05-30-2021 SARS-CoV-2 (COVID-19) IgG IA Ql 47.78 INDEX 0.00-0.99 [facility] Work Phone: Comment on above: It is yet undetermin ed what level of antibody to SARS-CoV-2 spike protein correlates to immunity against developing symptomatic SARS-CoV-2 disease. Studies are underway to measure the quantitative levels of specific SARS-CoV-2 antibodies following vaccination. Such studies will provide valuable insights into the correlation between protection from vaccination and antibody levels. Interpretation: Negative < 1.0 Positive > or = 1.0Method: [employer] IM SARS SEMI-QUANT IGG ABS * This test has not been reviewed by the FDA* Use of this test is limited to laboratories that are certified under Clinical Laboratory Improvement Amendments of 1988 (CLIA) to perform high-complexity testing.* Negative results do not preclude acute SARS-CoV-2 infection. If acute infection is suspected, direct testing for SARS-CoV-2 is necessary.* Results from antibody testing should not be used to diagnose or exclude acute SARS-CoV-2 infection.* Positive results may be due to past or present infection with phi-OHVS-BbA-2 coronovirus strains, such as coronavirus HKU1, NL63, OC43, or 229E. Serum or plasma urea nitroge n measurement (mass/volume)on 05-30-2021 Urea nitrogen [Mass/Vol] 14 mg/dL 7-18 [facility] Work Phone: Thin prep Papanicolaou smear with manual screeningon 05-30-2021 Thin prep Papanicolaou smear with manual screening 1490.0 mg/L NO RANGE EST. [facility] Work Phone: Thin prep Papanicolaou smear with manual screening 75 U/L 15-37 [facility] Work Phone: Thin prep Papanicolaou smear with manual screening 4 5-15 [facility] Work Phone: Urine creatinine measurement (mass/volume)on 05-30-2021 Creatinine (U) [Mass/Vol] 158.00 mg/dL NO RANGE EST. [facility] Work Phone: Laboratory - Hematology and Cell countson 05-27-2021 HbA1c (Bld) [Mass fraction] 6.5 % [facility] Work Phone: Hgb A1con 05-09-2017 Glucose mass conc 108 mg/dL Normal [facility] Comment on above: Performed By: #### H A1C ####[place] [address] Hemoglobin A1c/Hemoglobin.total mass fraction (Bld) 5.4 % Normal 4.2-6.3 [facility] Comment on above: Result Comment: Meth od is National Glycohemoglobin Standardization Program (NGSP) compliant. Performed By: #### H A1C ####[address] [address] Comprehensive Panelon 2017 Alkaline phosphatase (ALP) 53 U/L Normal 46-116 [facility] Comment on above: Performed By: #### P 14 ####[address] [address] Bilirubin Ql (U) 0.7 mg/dL Normal 0.2-1.0 [facility] Comment on above: Performed By: #### P 14 ####[address] [address] Alanine aminotransferase (ALT) 86 U/L High 12-78 [facility] Comment on above: Performed By: #### P 14 ####[facility] [place], [place] [address] Creatinine 1.08 mg/dL Normal 0.67-1.17 [facility] Comment on above: Performed By: #### P 14 ####[facility] [place], [place] [address] Protein 7.0 g/dL Normal 6.4-8.2 [facility] Comment on above: Performed By: #### P 14 ####[facility] [place], [place] [address] Aspartate aminotransferase (AST) 43 U/L High 9-37 [facility] Comment on above: Performed By: #### P 14 ####[address] [address] Anion gap 9 mmol/L Normal 8-16 [facility] Comment on above: Performed By: #### P 14 ####[address] [address] CO2 29 mmol/L Normal 21-32 [facility] Comment on above: Performed By: #### P 14 ####[address] [address] Glucose mass conc 111 mg/dL High 70-99 [facility] Comment on above: Performed By: #### P 14 ####[address] [address] Albumin 4.2 g/dL Normal 3.4-5.0 [facility] Comment on above: Performed By: #### P 14 ####[address] [address] Urea nitrogen 16 mg/dL Normal 7-18 [facility] Comment on above: Performed By: #### P 14 ####[address] [address] Calcium 8.8 mg/dL Normal 8.5-10.1 [facility] Comment on above: Performed By: #### P 14 ####[address] [address] Chloride 105 mmol/L Normal 98-107 [facility] Comment on above: Performed By: #### P 14 ####[facility] [place], [place] [address] Potassium molar conc 4.5 mmol/L Normal 3.5-5.1 [facility] Comment on above: Performed By: #### P 14 ####[facility] [place], [place] [address] Sodium 138 mmol/L Normal 136-145 [facility] Comment on above: Performed By: #### P 14 ####[address] [address] Lipid Profileon 05-08-2017 Cholesterol to HDL Ratio 4.8 {ratio} Normal 2.1-7.3 [facility] Comment on above: Performed By: #### L IPD2 ####[address] [address] HDL Cholesterol 41 mg/dL Normal >40 [facility] Comment on above: Performed By: #### L IPD2 ####[address] [address] LDL Cholesterol 119 mg/dL Normal [facility] Comment on above: Result Comment: No C AD and with fewer than 2 CAD risk factors <160 mg/dlNo CAD but with 2 or more CAD risk factors <130 mg/dlDefinite CAD or other atherosclerotic disease <100 mg/dl Performed By: #### L IPD2 ####[place] [address] LDL to HDL Ratio 2.9 Normal 1.1-4.8 [facility] Comment on above: Result Comment: LDL, VLDL,LDL/HDL, Invalid if Triglyceride >400 Performed By: #### L IPD2 ####[address] [address] Cholesterol in VLDL mass conc 38 mg/dL Normal <50 Desired [facility] Comment on above: Performed By: #### L IPD2 ####[address] [address] Triglyceride 189 mg/dL High 0-149 [facility] Comment on above: Result Comment: < 20 0 DesirableResult invalid if not a fasting specimen. Performed By: #### L IPD2 ####[facility] [place], [place] [address] Cholesterol 198 mg/dL Normal 0-199 [facility] Comment on above: Result Comment: <200 [id number] Borderline>240 High Performed By: #### L IPD2 ####[facility] [place], [place] [address] MDRD GFRon 05-08-2017 eGFR (non-black) mL/min/{1.73_m2} Normal >60mL/m in/1. 73m2 [facility] Comment on above: Result Comment: If t he patient is , multiply the result by 1.210. Performed By: #### G FR ####[address] [address] Vital Signs Date Time Vital Sign Value Performing Clinician Faci lity 08-01-2024 16:09-0400 Body height 187.[address] Roger Gibson DO Work Phone: [facility] 08-01-2024 16:09-0400 Body mass index (BMI) [Ratio] 47.3 kg/m2 Dr. Roger Gibson DO Work Phone: [facility] 08-01-2024 16:09-0400 Body temperature 97.5 [degF] Dr. Roger Gibson DO Work Phone: [facility] 08-01-2024 16:09-0400 Body weight 167.[address] Roger Gibson DO Work Phone: [facility] 08-01-2024 16:09-0400 Diastolic blood pressure 84 mm[Hg] Dr. Roger Gibson DO Work Phone: [facility] 08-01-2024 16:09-0400 Heart rate 46 /min Dr. Roger Gibson DO Work Phone: [facility] 08-01-2024 16:09-0400 Respiratory rate 16 /min Dr. Roger Gibson DO Work Phone: [facility] 08-01-2024 16:09-0400 SaO2% (BldA) [Mass fraction] 97 % Dr. Roger Gibson DO Work Phone: [facility] 08-01-2024 16:09-0400 Systolic blood pressure 120 mm[Hg] Dr. Roger Gibson DO Work Phone: [facility] 07-15-2023 09:23-0400 Body height 187.[address] Domingo Bustamante Work Phone: [facility] 07-15-2023 09:23-0400 Body mass index (BMI) [Ratio] 46.7 kg/m2 Dr. Domingo Bustamante Work Phone: [facility] 07-15-2023 09:23-0400 Body temperature 98.2 [degF] Dr. Domingo Bustamante Work Phone: [facility] 07-15-2023 09:23-0400 Body weight 165.[address] Domingo Bustamante Work Phone: [facility] 07-15-2023 09:23-0400 Diastolic blood pressure 86 mm[Hg] Dr. Domingo Bustamante Work Phone: [facility] 07-15-2023 09:23-0400 Heart rate 62 /min Dr. Domingo Bustamante Work Phone: [facility] 07-15-2023 09:23-0400 Respiratory rate 16 /min Dr. Domingo Bustamante Work Phone: [facility] 07-15-2023 09:23-0400 SaO2% (BldA) [Mass fraction] 98 % Dr. Domingo Bustamante Work Phone: [facility] 07-15-2023 09:23-0400 Systolic blood pressure 152 mm[Hg] Dr. Domingo Bustamante Work Phone: [facility] 07-12-2023 15:54-0400 Body mass index (BMI) [Ratio] 45.5 kg/m2 Dr. Domingo Bustamante Work Phone: [facility] 07-12-2023 15:54-0400 Body temperature 97.6 [degF] Dr. Domingo Bustamante Work Phone: [facility] 07-12-2023 15:54-0400 Body weight 165.[address] Domingo Bustamante Work Phone: [facility] 07-12-2023 15:54-0400 Diastolic blood pressure 90 mm[Hg] Dr. Domingo Bustamante Work Phone: [facility] 07-12-2023 15:54-0400 Heart rate 81 /min Dr. Domingo Bustamante Work Phone: [facility] 07-12-2023 15:54-0400 Respiratory rate 16 /min Dr. Domingo Bustamante Work Phone: [facility] 07-12-2023 15:54-0400 SaO2% (BldA) [Mass fraction] 96 % Dr. Domingo Bustamante Work Phone: [facility] 07-12-2023 15:54-0400 Systolic blood pressure 160 mm[Hg] Dr. Domingo Bustamante Work Phone: [facility] 04-01-2023 16:19-0500 Body height 190.[address] Domingo Bustamante Work Phone: [facility] 04-01-2023 16:19-0500 Body mass index (BMI) [Ratio] 42.5 kg/m2 Dr. Domingo Bustamante Work Phone: [facility] 04-01-2023 16:19-0500 Body temperature 98 [degF] Dr. Domingo Bustamante Work Phone: [facility] 04-01-2023 16:19-0500 Body weight 154.[address] Domingo Bustamante Work Phone: [facility] 04-01-2023 16:19-0500 Diastolic blood pressure 86 mm[Hg] Dr. Domingo Bustamante Work Phone: [facility] 04-01-2023 16:19-0500 Heart rate 42 /min Dr. Domingo Bustamante Work Phone: [facility] 04-01-2023 16:19-0500 Respiratory rate 18 /min Dr. Domingo Bustamante Work Phone: [facility] 04-01-2023 16:19-0500 SaO2% (BldA) [Mass fraction] 98 % Dr. Domingo Bustamante Work Phone: [facility] 04-01-2023 16:19-0500 Systolic blood pressure 138 mm[Hg] Dr. Domingo Bustamante Work Phone: [facility] 01-27-2023 16:28-0400 Body mass index (BMI) [Ratio] 46.7 kg/m2 Dr. Domingo Bustamante Work Phone: [facility] 01-27-2023 16:28-0400 Body temperature 98.8 [degF] Dr. Domingo Bustamante Work Phone: [facility] 01-27-2023 16:28-0400 Body weight 169.[address] Domingo Bustamante Work Phone: [facility] 01-27-2023 16:28-0400 Diastolic blood pressure 84 mm[Hg] Dr. Domingo Bustamante Work Phone: [facility] 01-27-2023 16:28-0400 Heart rate 51 /min Dr. Domingo Bustamante Work Phone: [facility] 01-27-2023 16:28-0400 Respiratory rate 18 /min Dr. Domingo Bustamante Work Phone: [facility] 01-27-2023 16:28-0400 SaO2% (BldA) [Mass fraction] 94 % Dr. Domingo Bustamante Work Phone: [facility] 01-27-2023 16:28-0400 Systolic blood pressure 128 mm[Hg] Dr. Domingo Bustamante Work Phone: [facility] 02-04-2022 16:33-0400 Body height 190.[address] Roger Gibson Work Phone: [facility] Work Phone: 02-04-2022 16:33-0400 Body mass index (BMI) [Ratio] 47.5 kg/m2 Dr. Roger Gibson Work Phone: [facility] Work Phone: 02-04-2022 16:33-0400 Body temperature 97 [degF] Dr. Roger Gibson Work Phone: [facility] Work Phone: 02-04-2022 16:33-0400 Body weight 172.[address] Roger Gibson Work Phone: [facility] Work Phone: 02-04-2022 16:33-0400 Diastolic blood pressure 64 mm[Hg] Dr. Roger Gibson Work Phone: [facility] Work Phone: 02-04-2022 16:33-0400 Heart rate 53 /min Dr. Roger Gibson Work Phone: [facility] Work Phone: 02-04-2022 16:33-0400 Respiratory rate 16 /min Dr. Roger Gibson Work Phone: [facility] Work Phone: 02-04-2022 16:33-0400 SaO2% (BldA) [Mass fraction] 96 % Dr. Roger Gibson Work Phone: [facility] Work Phone: 02-04-2022 16:33-0400 Systolic blood pressure 120 mm[Hg] Dr. Roger Gibson Work Phone: [facility] Work Phone: 01-20-2022 14:57-0400 Body temperature 98.2 [degF] Dr. Roger Gibson Work Phone: [facility] Work Phone: 01-20-2022 14:57-0400 Diastolic blood pressure 86 mm[Hg] Dr. Roger Gibson Work Phone: [facility] Work Phone: 01-20-2022 14:57-0400 Heart rate 77 /min Dr. Roger Gibson Work Phone: [facility] Work Phone: 01-20-2022 14:57-0400 Respiratory rate 14 /min Dr. Roger Gibson Work Phone: [facility] Work Phone: 01-20-2022 14:57-0400 SaO2% (BldA) [Mass fraction] 98 % Dr. Roger Gibson Work Phone: [facility] Work Phone: 01-20-2022 14:57-0400 Systolic blood pressure 168 mm[Hg] Dr. Roger Gibson Work Phone: [facility] Work Phone: 01-17-2022 15:28-0400 Diastolic blood pressure 107 mm[Hg] Dr. Roger Gibson Work Phone: [facility] Work Phone: 01-17-2022 15:28-0400 Heart rate 50 /min Dr. Roger Gibson Work Phone: [facility] Work Phone: 01-17-2022 15:28-0400 Respiratory rate 16 /min Dr. Roger Gibson Work Phone: [facility] Work Phone: 01-17-2022 15:28-0400 SaO2% (BldA) [Mass fraction] 95 % Dr. Roger Gibson Work Phone: [facility] Work Phone: 01-17-2022 15:28-0400 Systolic blood pressure 190 mm[Hg] Dr. Roger Gibson Work Phone: [facility] Work Phone: 01-17-2022 12:37-0400 Body height 190.[address] Roger Gibson Work Phone: [facility] Work Phone: 01-17-2022 12:37-0400 Body mass index (BMI) [Ratio] 50.5 kg/m2 Dr. Roger Gibson Work Phone: [facility] Work Phone: 01-17-2022 12:37-0400 Body temperature 98.6 [degF] Dr. Roger Gibson Work Phone: [facility] Work Phone: 01-17-2022 12:37-0400 Body weight 183.[address] Roger Gibson Work Phone: [facility] Work Phone: 2021 07:29-0400 Body temperature 99.5 [degF] Dr. Roger Gibson Work Phone: [facility] Work Phone: 2021 07:29-0400 Diastolic blood pressure 83 mm[Hg] Dr. Roger Gibson Work Phone: [facility] Work Phone: 2021 07:29-0400 Heart rate 61 /min Dr. Roger Gibson Work Phone: [facility] Work Phone: 2021 07:29-0400 Respiratory rate 16 /min Dr. Roger Gibson Work Phone: [facility] Work Phone: 2021 07:29-0400 SaO2% (BldA) [Mass fraction] 97 % Dr. Roger Gibson Work Phone: [facility] Work Phone: 2021 07:29-0400 Systolic blood pressure 139 mm[Hg] Dr. Roger Gibson Work Phone: [facility] Work Phone: 2021 05:55-0400 Body height 190.[address] Roger Gibson Work Phone: [facility] Work Phone: 2021 05:55-0400 Body mass index (BMI) [Ratio] 47.7 kg/m2 Dr. Roger Gibson Work Phone: [facility] Work Phone: 2021 05:55-0400 Body weight 173.[address] Roger Gibson Work Phone: [facility] Work Phone: 12-03-2021 17:01-0400 Body mass index (BMI) [Ratio] 48.1 kg/m2 Dr. Roger Gibson Work Phone: [facility] Work Phone: 12-03-2021 17:01-0400 Body temperature 97.8 [degF] Dr. Roger Gibson Work Phone: [facility] Work Phone: 12-03-2021 17:01-0400 Body weight 174.[address] Roger Gibson Work Phone: [facility] Work Phone: 12-03-2021 17:01-0400 Diastolic blood pressure 80 mm[Hg] Dr. Rogre Gibson Work Phone: [facility] Work Phone: 12-03-2021 17:01-0400 Heart rate 84 /min Dr. Roger Gibson Work Phone: [facility] Work Phone: 12-03-2021 17:01-0400 Respiratory rate 14 /min Dr. Roger Gibson Work Phone: [facility] Work Phone: 12-03-2021 17:01-0400 SaO2% (BldA) [Mass fraction] 96 % Dr. Roger Gibson Work Phone: [facility] Work Phone: 12-03-2021 17:01-0400 Systolic blood pressure 138 mm[Hg] Dr. Roger Gibson Work Phone: [facility] Work Phone: 10-16-2021 15:19-0400 Body mass index (BMI) [Ratio] 49.6 kg/m2 Dr. Roger Gibson Work Phone: [facility] Work Phone: 10-16-2021 15:19-0400 Body weight 180.[address] Roger Gibson Work Phone: [facility] Work Phone: 10-16-2021 15:19-0400 Diastolic blood pressure 76 mm[Hg] Dr. Roger Gibson Work Phone: [facility] Work Phone: 10-16-2021 15:19-0400 Heart rate 54 /min Dr. Roger Gibson Work Phone: [facility] Work Phone: 10-16-2021 15:19-0400 SaO2% (BldA) [Mass fraction] 92 % Dr. Roger Gibson Work Phone: [facility] Work Phone: 10-16-2021 15:19-0400 Systolic blood pressure 138 mm[Hg] Dr. Roger Gibson Work Phone: [facility] Work Phone: 08-29-2021 07:11-0400 Body mass index (BMI) [Ratio] 48.4 kg/m2 Dr. Roger Gibson Work Phone: [facility] Work Phone: 08-29-2021 07:11-0400 Body temperature 98.1 [degF] Dr. Roger Gibson Work Phone: [facility] Work Phone: 08-29-2021 07:11-0400 Body weight 175.[address] Roger Gibson Work Phone: [facility] Work Phone: 08-29-2021 07:11-0400 Diastolic blood pressure 86 mm[Hg] Dr. Roger Gibson Work Phone: [facility] Work Phone: 08-29-2021 07:11-0400 Heart rate 51 /min Dr. Roger Gibson Work Phone: [facility] Work Phone: 08-29-2021 07:11-0400 Respiratory rate 14 /min Dr. Roger Gibson Work Phone: [facility] Work Phone: 08-29-2021 07:11-0400 SaO2% (BldA) [Mass fraction] 96 % Dr. Roger Gibson Work Phone: [facility] Work Phone: 08-29-2021 07:11-0400 Systolic blood pressure 152 mm[Hg] Dr. Roger Gibson Work Phone: [facility] Work Phone: 08-29-2021 07:11-0400 Body height 190.[address] Roger Gibson Work Phone: [facility] Work Phone: 08-29-2021 07:11-0400 Body mass index (BMI) [Ratio] 48.4 kg/m2 Dr. Roger Gibson Work Phone: [facility] Work Phone: 08-29-2021 07:11-0400 Body temperature 98.1 [degF] Dr. Roger Gibson Work Phone: [facility] Work Phone: 08-29-2021 07:11-0400 Body weight 175.[address] Roger Gibson Work Phone: [facility] Work Phone: 08-29-2021 07:11-0400 Diastolic blood pressure 86 mm[Hg] Dr. Roger Gibson Work Phone: [facility] Work Phone: 08-29-2021 07:11-0400 Heart rate 51 /min Dr. Roger Gibson Work Phone: [facility] Work Phone: 08-29-2021 07:11-0400 Respiratory rate 14 /min Dr. Roger Gibson Work Phone: [facility] Work Phone: 08-29-2021 07:11-0400 SaO2% (BldA) [Mass fraction] 96 % Dr. Roger Gibson Work Phone: [facility] Work Phone: 08-29-2021 07:11-0400 Systolic blood pressure 152 mm[Hg] Dr. Roger Gibson Work Phone: [facility] Work Phone: 06-10-2021 15:00-0500 Body temperature 97 [degF] Dr. Roger Gibson Work Phone: [facility] Work Phone: 06-10-2021 15:00-0500 Diastolic blood pressure 76 mm[Hg] Dr. Roger Gibson Work Phone: [facility] Work Phone: 06-10-2021 15:00-0500 Heart rate 45 /min Dr. Roger Gibson Work Phone: [facility] Work Phone: 06-10-2021 15:00-0500 Respiratory rate 16 /min Dr. Roger Gibson Work Phone: [facility] Work Phone: 06-10-2021 15:00-0500 SaO2% (BldA) [Mass fraction] 93 % Dr. Roger Gibson Work Phone: [facility] Work Phone: 06-10-2021 15:00-0500 Systolic blood pressure 128 mm[Hg] Dr. Roger Gibson Work Phone: [facility] Work Phone: 06-10-2021 09:11-0500 Body mass index (BMI) [Ratio] 48.9 kg/m2 Dr. Roger Gibson Work Phone: [facility] Work Phone: 06-10-2021 09:11-0500 Body weight 177.[address] Roger Gibson Work Phone: [facility] Work Phone: 05-27-2021 15:48-0500 Body mass index (BMI) [Ratio] 49.4 kg/m2 Dr. Roger Gibson Work Phone: [facility] Work Phone: 05-27-2021 15:48-0500 Body temperature 98.8 [degF] Dr. Roger Gibson Work Phone: [facility] Work Phone: 05-27-2021 15:48-0500 Body weight 179.[address] Roger Gibson Work Phone: [facility] Work Phone: 05-27-2021 15:48-0500 Diastolic blood pressure 80 mm[Hg] Dr. Roger Gibson Work Phone: [facility] Work Phone: 05-27-2021 15:48-0500 Heart rate 85 /min Dr. Roger Gibson Work Phone: [facility] Work Phone: 05-27-2021 15:48-0500 Respiratory rate 14 /min Dr. Roger Gibson Work Phone: [facility] Work Phone: 05-27-2021 15:48-0500 SaO2% (BldA) [Mass fraction] 97 % Dr. Roger Gibson Work Phone: [facility] Work Phone: 05-27-2021 15:48-0500 Systolic blood pressure 138 mm[Hg] Dr. Roger Gibson Work Phone: [facility] Work Phone: Encounters Encounter Date Encounter Type Care Provider Facility Start: 08-01-2024 End: 08-01-[address] Roger Hammer DO -[facility] Work Phone: Start: 08-01-2024 End: 08-01-2024 ambulatory Roger Gibson Facility:[facility] Start: 08-01-2024 End: 08-01-[address] Roger Gibson DO Work Phone: [facility] Work Phone: Start: 08-01-2024 End: 08-01-[address] Roger Hammer DO -Laboratory, [place] Start: 08-01-2024 End: 08-01-2024 ambulatory Roger Gibson Facility:[facility] Start: 08-12-2023 End: 08-12-[address] Domingo Bustamante Work Phone: [facility] Work Phone: Start: 08-12-2023 End: 08-12-[address] Domingo Bustamante Work Phone: [facility]Sleep Lab Work Phone: Start: 08-12-2023 End: 08-12-2023 ambulatory Christie Hines Facility:[facility] Start: 07-15-2023 End: 07-15-[address] Domingo Bustamante Work Phone: [facility] Work Phone: Start: 07-15-2023 End: 07-15-[address] Domingo Bustamante Work Phone: [facility] Work Phone: Start: 07-12-2023 End: 07-12-[address] Domingo Bustamante Work Phone: [facility] Work Phone: Start: 04-16-2023 End: 04-16-[address] Domingo Bustamante Work Phone: [facility] Work Phone: Start: 04-16-2023 End: 04-16-[address] Domingo Bustamante Work Phone: [facility]-Outpatient Breast Imaging Work Phone: Start: 04-10-2023 End: 04-10-[address] Domingo Bustamante Work Phone: [facility]Laboratory Work Phone: Start: 04-01-2023 End: 04-01-[address] Domingo Bustamante Work Phone: [facility] Work Phone: Start: 01-27-2023 End: 01-27-[address] Domingo Bustamante Work Phone: [facility] Work Phone: Start: 02-24-2022 End: 02-24-[address] Roger Gibson Work Phone: [facility] Work Phone: Start: 02-24-2022 End: 02-24-[address] [facility] Start: 02-04-2022 End: 02-04-[address] Roger Gibson Work Phone: [facility] Start: 01-20-2022 End: 01-20-[address] Roger Gibson Work Phone: [facility] Start: 01-17-2022 End: 01-17-2022 Emergency department patient visit Dr. Roger Gibson Work Phone: [facility]-Emergency Department Start: 2021 Non-patient / Non-visit Dr. Roger Gibson Work Phone: [facility] Start: 2021 End: 2021 Admission to same day surgery center Dr. Roger Gibson Work Phone: [facility]-Endoscopy Start: 12-03-2021 End: 12-03-[address] Roger Gibson Work Phone: [facility] Start: 10-16-2021 End: 10-16-[address] Roger Gibson Work Phone: [facility] Gastroenterology Start: 09-01-2021 End: 09-01-[address] Roger Gibson Work Phone: [facility] Start: 08-29-2021 End: 08-29-[address] Roger Gibson Work Phone: [facility] Start: 07-28-2021 End: 07-28-[address] Roger Gibson Work Phone: [facility] Start: 06-23-2021 End: 06-23-[address] Roger Gibson Work Phone: [facility] Start: 06-10-2021 Non-patient / Non-visit Dr. Roger Gibson Work Phone: [facility] Start: 06-10-2021 End: 06-10-2021 Admission to same day surgery center Dr. Roger Gibson Work Phone: [facility]Surgical Day Care Start: 05-30-2021 End: 05-30-[address] Roger Gibson Work Phone: [facility] Start: 05-28-2021 End: 05-28-[address] Roger Gibson Work Phone: [facility] Start: 05-27-2021 End: 05-27-[address] Roger Gibson Work Phone: [facility] Start: 05-08-2017 End: 05-09-2017 Ambulatory Kee Ammy [facility] Facility:[facility] Procedures Date Procedure Procedure Detail Performing Clinician Start: 07-15-[address] Josafat Bustamante Work Phone: Start: 04-16-[address] Domingo Bustamante Work Phone: Start: 04-16-2023 Bilateral mammography D estrellita Bustamante Work Phone: Start: 04-16-[address] Domingo Bustamante Work Phone: Start: [address] Itzel Gibson Work Phone: Start: 06-06-2021 SARS-CoV-2 Antigen (Rapid) Dr. Roger Gibson Work Phone: Plan of Treatment Date Care Activity Detail Author Start: 01-17-2022 Smpl repair scalp/neck/ax/genit/trunk 2.6-7.5cm RPR S/N/AX/GEN/TRNK2.6-7.5 CM [facility] Work Phone: Start: 2021 Colsc flx w/rmvl of tumor polyp lesion snare tq COLONOSCOPY W/LESION REMOVAL [facility] Work Phone: Start: 2021 Patient discharge [facility] Work Phone: Start: 06-10-2021 Anes open/surg arthroscopic proc knee joint nos ANESTH KNEE JOINT SURGERY [facility] Work Phone: Start: 06-10-2021 Arthrs kne surg w/meniscectomy med/lat w/shvg KNEE ARTHROSCOPY/SURGERY [facility] Work Phone: Acute hepatitis 2000 panel - Serum [facility] Work Phone: Rqlzk-2-zpdyhhwcttt. tumor marker [Units/volume] in Serum or Plasma [facility] Work Phone: Angiotensin converti ng enzyme [Enzymatic activity/volume] in Serum or Plasma [facility] Work Phone: Blood ammonia measurement [facility] Work Phone: Blood chemistry [facility] Work Phone: C reactive protein [Mass/volume] in Serum or Plasma [facility] Work Phone: CBC W Auto Different ial panel - Blood [facility] Work Phone: Ceruloplasmin [Mass/ volume] in Serum or Plasma [facility] Work Phone: Copper [Moles/volume ] in Serum or Plasma [facility] Work Phone: CT Abdomen [facility] Work Phone: Erythrocyte sediment ation rate [facility] Work Phone: Ferritin [Mass/volum e] in Serum or Plasma [facility] Work Phone: Haptoglobin [Mass/vo lume] in Serum or Plasma [facility] Work Phone: Hemoglobin A1c/Hemoglobin.total in Blood [facility] Work Phone: HIV 1+2 Ab+HIV1 p24 Ag [Presence] in Serum or Plasma by Immunoassay [facility] Work Phone: Lipid 1996 panel - S donn or Plasma [facility] Work Phone: Mitochondria Ab [Pre sence] in Serum [facility] Work Phone: Patient Education ED Laceration Extremity [facility] Work Phone: Patient referral [facility] Work Phone: Polysomnography [facility] Prothrombin time [facility] Work Phone: Smooth muscle Ab [Pr esence] in Serum [facility] Work Phone: Ultrasound elastography [facility] Work Phone: Immunizations Immunization Date Immunization Notes Care Provider [facility] 01-17-2022 tetanus toxoid, redu don diphtheria toxoid, and acellular pertussis vaccine, adsorbed Dr. Roger Gibson Work Phone: [facility] 07-04-2019 diphtheria, tetanus toxoids and acellular pertussis vaccine, unspecified formulation Dr. Roger Gibson Work Phone: [facility] Work Phone: 07-04-2019 tetanus toxoid, redu don diphtheria toxoid, and acellular pertussis vaccine, adsorbed Dr. Roger Gibson Work Phone: [facility] Payers Date Payer Category Payer Self-pay [id number] 2023 Unknown [id number] Unknown [id number] Unknown [id number] Unknown [id number] Social History Date Type Detail Facility Start: 08-29-2021 End: 07-15-2023 Tobacco smoking status RIIS Unknown if ever smoked [facility] Start: 1980 Sex Assigned At Male W [facility] Start: 07[facility]15-[facility] Start: 08-05-2024 Sex Male (finding) [facility] Medical Equipment Procedure Code Equipment Code Equipment Origin al Text Equipment Identifier Dates Blood Sugar Diagnostic (Freestyle Test) strip Start: 06-18-2020 Lancets (Freesty le Lancets) 28 gauge misc Start: 06-18-2020 Blood Sugar Diagnostic (Freestyle Test) strip Start: 06-18-2020 Lancets (Freesty le Lancets) 28 gauge misc Start: 06-18-2020 Blood Sugar Diagnostic (Freestyle Test) strip Start: 06-18-2020 Lancets (Freesty le Lancets) 28 gauge misc Start: 06-18-2020 Blood Sugar Diagnostic (Freestyle Test) strip Start: 06-18-2020 Lancets (Freesty le Lancets) 28 gauge misc Start: 06-18-2020 Blood Sugar Diagnostic (Freestyle Test) strip Start: 06-18-2020 Lancets (Freesty le Lancets) 28 gauge misc Start: 06-18-2020 Blood Sugar Diagnostic (Freestyle Test) strip Start: 06-18-2020 Lancets (Freesty le Lancets) 28 gauge misc Start: 06-18-2020 Blood Sugar Diagnostic (Freestyle Test) strip Start: 06-18-2020 Lancets (Freesty le Lancets) 28 gauge mis Start: 06-18-2020 Blood Sugar Diagnostic (Freestyle Test) strip Start: 06-18-2020 Lancets (Freesty le Lancets) 28 gauge [facility] Start: 06-18-2020 Goals Date Patient Goal Desired Activity /State Mental Status Date Assessment Result Facility 2021 Cognitive function Voice/Name [facility] Work Phone: 06-10-2021 Cognitive function Voice/Name [facility] Work Phone: Clinical Notes 07-30-2020 to 08-01-2024 Note Date & Type Note Facility 08-01-2024 Evaluation note Diagnosis Onset Date Resolution Plantar fasciitis of left foot acute August 01, 2024 4:02pm Chronic low back pain chronic Apr 2024 4:02pm HTN (hypertension) chronic August 01, 2024 4:02pm Hyperlipidemia chronic August 01, 2024 4:02pm Type 2 diabetes mellitus chronic August 01, 2024 4:02pm [facility] Work Phone: [phone]) 430-726203-30-2021 NoteHNO ID: [id number] Author: Monica Dailey Ma Service: ? Author Type: ? Type: Progress Notes Filed: 07/30/2020 3:35 PM Note Text: POPULATION HEALTH NAVIGATION OUTREACH Action/FYI Left vm needs physical Contact made with patient or family member? NO Pt identified by name and : NO Outreach Outcome/Action Unable to reach patient: Left message Reason for Outreach Care Gap or Scheduling/Wellness visits Payer: Payor: MMO / Plan: MMO MHS / Product Type: Indemnity / Care Gap Reviewed:: Annual Wellness visit Reminder: Reminder note to check Health Maintenance for items below Health Maintenance items due: HIV SCREENING Completed BP CONTROLLED (<130/80) Completed ANNUAL PCP TEAM CHRONIC DISEASE VISIT due on 06/08/2019 DEPRESSION SCREENING due on 06/08/2019 Advanced Directives Completed: Have you ever planned for future healthcare decisions with a power of real estate attorney, living will, or advance directives? No. Please bring a copy to your next appointment or email to Referrals: N/A Message Sent to Practice: NO Navigation Signature: Monica Dailey Ma July 30, 2020 3:34 [facility]03-30-2021 NotePatient Outreach (FAMPWS) MICHA FLORES ([id number]) 1980 M Date Time Provider Department 07/30/20 KEE MALDONADO During your visit today, we recorded the following information about you: Monica Dailey Ma 07/30/2020 3:35 PM Signed POPULATION HEALTH NAVIGATION OUTREACH Action/FYI Left vm needs physical Contact made with patient or family member? NO Pt identified by name and : NO Outreach Outcome/Action Unable to reach patient: Left message Reason for Outreach Care Gap or Scheduling/Wellness visits Payer: Payor: MMO / Plan: MMO MHS / Product Type: Indemnity / Care Gap Reviewed:: Annual Wellness visit Reminder: Reminder note to check Health Maintenance for items below Health Maintenance items due: HIV SCREENING Completed BP CONTROLLED (<130/80) Completed ANNUAL PCP TEAM CHRONIC DISEASE VISIT due on 06/08/2019 DEPRESSION SCREENING due on 06/08/2019 Advanced Directives Completed: Have you ever planned for future healthcare decisions with a power of real estate attorney, living will, or advance directives? No. Please bring a copy to your next appointment or email to [email or web address] Referrals: N/A Message Sent to Practice: NO Navigation Signature: Monica Dailey Ma July 30, 2020 3:34 PM Allergies As of Date: 07/30/2020 Noted Allergy Reaction ERYTHROMYCIN 05/30/2009 4 - Hives ZITHROMAX (AZITHROMYCIN) 05/30/2009 4 - Hives Date Reviewed: 06/08/2018 Reviewed by: Kee Maldonado - Fully Assessed Reason for Visit: Appointment [[id number]] Cmt: HTN Prescriptions as of 07/30/2020 Sig: METOPROLOL SUCCINATE ER 50 MG* Take 1 tablet by mouth once d* DILTIAZEM SR 240 MG 24 HR CAP Take 1 capsule by mouth once * COMPOUNDED PRESCRIPTION C-pap supplies Dx Sleep Apnea* LISINOPRIL 40 MG TABLET Take 1 tablet by mouth once d* HYDROCHLOROTHIAZIDE 25 MG TAB* Take 1 tablet by mouth once d* COMPOUNDED PRESCRIPTION knee high support stockings 3* MULTIVITAMIN CAPSULE Take 1 capsule by mouth once * Problem List As Of Date 07/30/2020 Noted Resolved Essential hypertension [I10] Cardiomyopathy (HCC) [I42.9] 12/08/2017 Elevated levels of transaminase AND lactic acid d* Mixed hyperlipidemia [E78.2] IBS (irritable bowel syndrome) [K58.9] Morbid obesity (HCC) [E66.01] Non-alcoholic fatty liver disease [K76.0] Pulmonary hypertension (HCC) [I27.20] Venous insufficiency of both lower extremities *04/15/2016 Bilateral edema of lower extremity [R60.0] 04/15/2016 Sleep apnea [G47.30] 04/30/2016 Elevated fasting blood sugar [R73.01] 11/14/2016 Need for vaccination [Z23] 06/08/2018 Encounter Status:Closed by MONICA DAILEY MA [facility] Diagnosis Onset Date Resolution Status Type 2 diabetes mellitus acu te Hyperlipidemia chronic Non-alcoholic fatty liver disease chronic Acute medial meniscus tear of left knee acute Arthritis of right knee acut e Orthopedic aftercare acute Other acute postprocedural pain acute Orthopedic aftercare acute Type II diabetes mellitus ac [place] HTN (hypertension) [facility] Work Phone: Evaluation note* Diagnosis Onset Date Resolution Status Type II diabetes mellitus ac [place] HTN (hypertension) chronic Colon polyps acute Non-alcoholic fatty liver disease chronic Type II diabetes mellitus ac [place] HTN (hypertension) chronic Hyperlipidemia [facility] Work Phone: Evaluation note* Diagnosis Onset Date Resolution Status Colon polyps acute Non-alcoholic fatty liver disease chronic Type II diabetes mellitus ac [place] HTN (hypertension) chronic Hyperlipidemia [facility] Work Phone: Evaluation note* Diagnosis Onset Date Resolution Status Type II diabetes mellitus ac [place] HTN (hypertension) chronic Hyperlipidemia chronic Cellulitis of right lower extremity noneactive Laceration of right lower extremity noneactive Cellulitis of right lower extremity noneactive Laceration of right lower extremity noneactive [facility] Work Phone: Evaluation note* Diagnosis Onset Date Resolution Status Type 2 diabetes mellitus acu te HTN (hypertension) chronic Breast lump acute Fatigue acute [facility] Work Phone: Evaluation note* Diagnosis Onset Date Resolution Status Breast lump acute Fatigue acute HTN (hypertension) chronic Sleep apnea chronic Left ankle strain acute [facility] Work Phone: Evaluation note* Diagnosis Onset Date Resolution Status HTN (hypertension) chronic Sleep apnea chronic Left ankle strain acute [facility] Work Phone: Reason for referral (narrative)No reason for referral information availableWKet[facility] Work [facility]: Summary Purpose Family History No Family History Records Found Relationship Condition Age at Onset Recorded Date/T boy Not Specified Diabetes mellitus Unknown Anxiety Unknown Arthritis Unknown Cardiac disease Unknown Hypertension Unknown Disorder of thyroid Unknown Relationship Condition Age at Onset Recorded Date/T boy Not Specified Diabetes mellitus Unknown Anxiety Unknown Arthritis Unknown Cardiac disease Unknown Hypertension Unknown Disorder of thyroid Unknown aunt Malignant neoplasm of colon Unknown Advance Directives No Advanced Directives Records Found Advance Directive Response Recorded Date/ Time Living Will No June 23 5:23pm Power of Trade Embalmer No June 23, 2021 5:23pm Advance Directive Response Recorded Date/ Time Living Will No December 09, 2021 9:48am Power of Trade Embalmer No December 09 9:48am Advance Directive Response Recorded Date/ Time Living Will No January 17, 2022 12:42pm Power of Trade Embalmer No January 12:42pm Advance Directive Response Recorded Date/ Time Living Will No January 17, 2022 11:42am Power of Trade Embalmer No January 11:42am Chief Complaint and Reason for Visit Chief Complaint f/u RIGHT KNEE RT KNEE ARTHROSCOPY, PARTIAL MEDIAL MENISE RT KNEE ARTHROSCOPY, PARTIAL MEDIAL MENISE right knee RIGHT KNEE BP, DIABETIES Reason for Visit Type 2 diabetes migue itus Hyperlipidemia Non-alcoholic fatty liver disease Acute medial meniscus tear of left knee Arthritis of right knee Orthopedic aftercare Other acute postprocedural pain Orthopedic aftercare Type II diabetes mellitus HTN (hypertension) Chief Complaint BP, DIABETIES POLYP OF COLON 3 M FU Reason for Visit Type II diabetes [place] HTN (hypertension) Colon polyps Non-alcoholic fatty liver disease Type II diabetes mellitus HTN (hypertension) Hyperlipidemia Chief Complaint POLYP OF COLON 3 M FU CUT LEG WITH CHAIN SAW Reason for Visit Colon polyps Non-alcoholic fatty liver disease Type II diabetes mellitus HTN (hypertension) Hyperlipidemia Chief Complaint 3 M FU CUT LEG WITH CHAIN SAW recheck leg LEG RE-CHK/STICH REMOVAL Reason for Visit Type II diabetes [place] HTN (hypertension) Hyperlipidemia Cellulitis of right lower extremity Laceration of right lower extremity Cellulitis of right lower extremity Laceration of right lower extremity Chief Complaint bp check LUMP ON CHEST EORDERS BREAST LUMP Reason for Visit Type 2 diabetes mig[place] itus HTN (hypertension) Breast lump Fatigue Chief Complaint LUMP ON CHEST EORDERS BREAST LUMP NEEDS NEW CPAP FOOT & ANKLE PAIN Left ankle pain Reason for Visit Breast lump Fatigue HTN (hypertension) Sleep apnea Left ankle strain Chief Complaint NEEDS NEW CPAP FOOT & ANKLE PAIN Left ankle pain Sleep apnea, unspecified Reason for Visit HTN (hypertension) Sleep apnea Left ankle strain Chief Complaint Admit Date MED FU August 01, 2024 4:02 pm Reason for Visit Admit Date Plantar fasciitis of left foot August 4:02pm Chronic low back pain August 01, 2024 4: 02pm HTN (hypertension) August 01, 2024 4:02 pm Hyperlipidemia August 01, 2024 4:02 pm Type 2 diabetes mellitus August 01, 2024 4:02pm Additional Source Comments (unrecognized sect ion and content) No Status Records FoundNo Status Records FoundNo Status Records FoundNo Status Records Found INFORMATION SOURCE (unrecogn ized section and content) DATE CREATED AUTHOR 10/26/2017 [facility] DATE CREATED AUTHOR AUTHOR'S ORGANIZ ATION 10/26/2017 [facility] DATE CREATED AUTHOR AUTHOR'S ORGANIZ ATION 05/27/2021 [facility] DATE CREATED AUTHOR AUTHOR'S ORGANIZ ATION 08/07/2024 [facility] Goals (unrecognized section and content) Goals may be documented in a n alternate sectionGoals may be documented in an alternate sectionGoals may be documented in an alternate sectionGoals may be documented in an alternate sectionGoals may be documented in an alternate section Care Teams (unrecognized sec tion and content) Team Status: Active Member Role Status Dates Dr. Roger Gibson DO Family Provider Active Dr. Domingo Bustamante MD Primary Care Provider Activ e Team Status: Inactive Member Role Status Dates Dr. Domingo Bustamante MD Primary Care Provider, Refe rring Provider Active Dr. Roger Gibson DO Attending Provider Active Team Status: Inactive Member Role Status Dates Dr. Domingo Bustamante MD Primary Care Provider Activ e Dr. Roger Gibson DO Attending Provider, Referring Provider Active Team Status: Inactive Member Role Status Dates Dr. Domingo Bustamante MD Primary Care Provider, Refe rring Provider Active Christie Hines NP-Kimberlyn Attending Provider Active Team Status: Inactive Member Role Status Dates Dr. Domingo Bustamante MD Primary Care Provider, Refe rring Provider Active RONNY Phillips Attending Provider Active Team Status: Inactive Member Role Status Dates Dr. Domingo Bustamante MD Primary Care Provider Activ e RONNY Phillips Attending Provider, Referring Provi jose r Active Team Status: Active Member Role Status Dates Dr. Roger Gibson DO Family Provider Active Dr. Roger Gibson DO Primary Care Provider Active Team Status: Inactive Member Role Status Dates Christie Hines NP-C Attending Provider, Referring Pro vider Active Dr. Roger Gibson DO Primary Care Provider Active Team Status: Inactive Member Role Status Dates Dr. Roger Gibson DO Primary Care Provider Active Start: August 01, 2024 End: August 01, 2024 Dr. Roger Gibson DO Attending Provider Active Start: August 01, 2024 End: August 01, 2024 Dr. Roger Gibson DO Referring Provider Active Start: August 01, 2024 End: August 01, 2024 FOR RECORDS PERTAINING TO PATIENTS WHO ARE OR HAVE BEEN ENROLLED IN A CHEMICAL DEPENDENCY/SUBSTANCEABUSE PROGRAM, SOME INFORMATION MAY BE OMITTED. This clinical summary was aggregated from multiple sources. Caution should be exercised in using it in the provision of clinical care. This summary normalizes information from multiple sources, and as a consequence, information in this document may materially change the coding, format and clinical context of patient data. In addition, data may be omitted in some cases. CLINICAL DECISIONS SHOULD BE BASED ON THE PRIMARY CLINICAL RECORDS. [facility] [employer] provides no warranty or guarantee of the accuracy or completeness of information in this document.
== END | disposition home or self-care (01) ==
LOC: MTRAD 14:54
PROVIDERS: PCP Family Medicine; Referring Provider Physician Assistant Surgical; Visit Provider Physician Assistant Surgical
DX: M79.674 Pain in right toe(s) (principal)
CPT/HCPCS: 73660

== ENCOUNTER 2025-04-20 08:44 | Emergency (ER) | payer MEDICAID, SELFPAY ==
[2025-04-20 08:45] VITALS: BP 199/109; PULSE 67; RESP 18; TEMP 36.8; O2SAT 100; BMI 50.0
--- NOTE | 2025-04-20 09:06 | EDS_ITS ---
HPI History of Present Illness Chief Complaint: Head Injury Informant: patient Onset/Context/Timing Onset: Today Mechanism/Context: Fall and Slip Quality of Pain: Dull Location: Right forehead Worsened by: Nothing Relieved by: Nothing Associated Symptoms Associated Symptoms: Negative for Parasthesias, Weakness, Loss of function, Inability to ambulate or Loss of consciousness Narrative Narrative: Patient presents with a head injury that occurred today. Patient states he slipped and fell. Patient states he hit the right side of his head. Patient denies any loss of consciousness. Patient has a laceration to his right forehead. Patient denies any paresthesias or weakness. Patient states his last tetanus was approximately 3 years ago. Patient denies any other injuries. Tetanus Immunization: <5 years [facility] Medical History Sleep apnea Wears glasses High cholesterol Heartburn Non-smoker CPAP (continuous positive airway pressure) dependence History of edema History of stress test Hyperlipidemia Colon polyps Encounter for screening for COVID-19 Frequent headaches Fatty liver Diabetes Seasonal allergies GERD (gastroesophageal reflux disease) HTN (hypertension) Home Medications ?Medication ?Instructions ?Recorded ?Last Taken ?Type blood sugar diagnostic (FreeStyle #50 ea 06/18/20 Unkn own Rx Test strips) blood-glucose meter (FreeStyle #1 ea 06/18/20 Unknown Rx System Kit) lancets 28 gauge (FreeStyle #50 ea 06/18/20 Unknown Rx Lancets) Full face CPAP mask #1 ea 03/10/23 Unknown Rx Auto-training CPAP #1 ea 08/31/23 Unknown Rx amlodipine 10 mg tablet 10 mg PO DAILY #90 tabs 05/27 Unknown Rx hydrochlorothiazide 25 mg tablet See Rx Instructions . Route 08/01/24 Unknown Rx .COMPLEX #90 tabs lisinopril 40 mg tablet 40 mg PO DAILY #90 tabs /0 05/27 Unknown Rx metoprolol succinate 50 mg capsule 50 mg PO DAILY #90 ea 08/01/24 Unknown Rx sprinkle, ext. release 24 hr Allergy/AdvReac Type Severity Reaction Status Date / Time erythromycin base Allergy Hives Verified 04/20/25 08:47 Family History (Updated 08/01/24 @ 16:09 by Aisha Mahajan MA) Aunt Colon cancer Other Anxiety Arthritis Diabetes Heart disease Hypertension Thyroid disorder Surgical History Hx of right knee surgery History of tonsillectomy H/O eye surgery H/O hernia repair Social History Smoking Status: Never smoker alcohol intake: current alcohol intake frequency: holidays/special occasions only substance use type: does not use what type of physical activity do you participate in: none ROS ROS ED Constitutional Constitutional ED: Denies chills or fever(s) Eyes Eyes: Denies blurry vision or change in vision ENT ENT ED: Denies rhinorrhea or sore throat Cardiovascular Cardiovascular: Denies chest pain or palpitations Respiratory/Chest Respiratory/Chest: Denies cough or dyspnea Gastrointestinal Gastrointestinal: Denies nausea or vomiting Genitourinary Genitourinary ED: Denies dysuria or hematuria Musculoskeletal Musculoskeletal: Denies back pain or neck pain Integumentary Denies abscess or rash Neurologic Neurologic: Denies headache(s) or weakness Allergic/Immunologic Allergic/Immunologic ED: Denies mouth swelling or urticaria EXAM Physical Exam Const Vital Signs: 04/20/25 08:45 04/20/25 09:04 Temperature 98.2 F Temperature Source Oral Pulse Rate 67 Respiratory Rate 18 Respiratory Effort Normal Blood Pressure 199/109 H Blood Pressure Mean 139 Pulse Ox 100 Oxygen Delivery Method Room Air Positive well nourished and well developed General Appearance ED: well developed and NAD HEENT HEENT Narrative: There is a 1 cm full-thickness linear laceration over the right temporal area. There is minimal gapping of the wound margins. There are no foreign bodies noted. There is minimal bleeding noted. There is no tenderness. Eyes PERRL and EOMs intact bilaterally Neck full ROM Neuro oriented x3, CN's II-XII intact bilaterally, moves all extremities, no focal motor deficits and no sensory deficits noted [place] Coma Scale: document GCS findings Spontaneous Obeys Commands Oriented 15 Sensorium / Orientation: alert Motor Exam: strength 5/5 throughout Psych mental status grossly normal and thought process normal MDM MDM MDM Narrative Medical decision making narrative: The wound was cleaned with chlorhexidine. The wound was closed with Dermabond skin adhesive. Patient tolerated the procedure well. Patient was instructed to keep the wound clean and dry. Patient was instructed to follow-up with his primary care physician in 5 to 7 days. Patient understood and was agreeable with the plan. All questions were answered. Discharge Plan Triage Chief Complaint: Head Injury ED Provider: Guerrero Heck Dx/Rx/DC Orders Clinical Impression: Forehead laceration, Fall, Closed head injury Instructions: ED Head Injury (Adult), ED Laceration, Face: Skin Glue Prescriptions: No Action (DME) lancets [FreeStyle Lancets] 28 gauge misc See Rx Instructions .ROUTE .MEDSUPPLY Qty: 50 11RF Rx Instructions: Check blood glucose daily for type 2 DM (DME) blood-glucose meter [FreeStyle System Kit] Kit See Rx Instructions .ROUTE .MEDSUPPLY Qty: 1 0RF Rx Instructions: check blood glucose daily for type 2 DM (DME) FreeStyle Test Strip See Rx Instructions .ROUTE .MEDSUPPLY Qty: 50 11RF Rx Instructions: check blood glucose daily amlodipine 10 mg tablet 10 mg PO DAILY Qty: 90 3RF hydrochlorothiazide 25 mg tablet See Rx Instructions .ROUTE .COMPLEX Qty: 90 3RF Dose Instruction: TAKE 1 TABLET BY MOUTH EVERY MORNING Rx Instructions: TAKE 1 TABLET BY MOUTH EVERY MORNING lisinopril 40 mg tablet 40 mg PO DAILY Qty: 90 3RF metoprolol succinate 50 mg capsule,sprinkle,ER 24hr 50 mg PO DAILY Qty: 90 3RF (DME) Full face CPAP mask See Rx Instructions .Route .MEDSUPPLY Qty: 1 1RF Rx Instructions: As directed (DME) Auto-training CPAP See Rx Instructions .Route .MEDSUPPLY Qty: 1 0RF Rx Instructions: As directed Primary Care Provider: Roger Gibson Referrals: Roger Gibson, [Primary Care Provider, Internal Medicine] - 1-2 Weeks Activity Restrictions/Additional Instructions: Do not use bacitracin, Neosporin, triple antibiotic ointment, or other Vaseline- based ointments to the wound. This will break the glue down. Print Language: Chinese Disposition Disposition: Home, Self Care
[2025-04-20 09:31] VITALS: BP 145/88; PULSE 75; RESP 18; TEMP 36.8; O2SAT 100
== END 2025-04-20 09:32 | disposition home or self-care (01) ==
LOC: ED 09:18
PROVIDERS: Emergency Provider Emergency Medicine; PCP Family Medicine; Visit Provider Emergency Medicine
DX: S01.81XA Laceration without foreign body of other part of head, initial encounter (principal); E11.9 Type 2 diabetes mellitus without complications; W01.0XXA Fall on same level from slipping, tripping and stumbling without subsequent striking against object, initial encounter; I10 Essential (primary) hypertension; G47.30 Sleep apnea, unspecified; Z79.899 Other long term (current) drug therapy
CPT/HCPCS: 12011; 99282